=== PATIENT | female | born 1970 | race Hispanic/Latino ===

== ENCOUNTER 2021-09-10 14:37 | Emergency (ER) | payer SELFPAY ==
[~2021-09-10] VITALS: Ht 154.9 cm; Wt 113.4 kg
[2021-09-10] MEDS ORDERED: 0.9%NACL 1000ML 1,000 ML IV ONE (15:00)
[2021-09-10] MEDS ORDERED: KETOROLAC 30MG VIAL (30MG/ML) IV ONE (15:00)
[2021-09-10] MEDS ORDERED: ONDANSETRON 4MG INJ IVP ONE (15:00)
[2021-09-10 15:04] LABS: APPEARANCE,URINE Clear (CLEAR); BILIRUBIN,URINE Negative (NEGATIVE); COLOR,URINE Yellow (YELLOW); GLUCOSE, URINE (UA) Negative (NEGATIVE); KETONES,URINE Negative (NEGATIVE); LEUKOCYTE ESTERASE ,URINE Negative (NEGATIVE); NITRATE,URINE Negative (NEGATIVE); OCCULT BLOOD,URINE Trace (NEGATIVE); PH,URINE 5.5 (5.0-8.0); PROTEIN,URINE Negative (NEGATIVE); UROBILINOGEN,URINE 0.2 mg/dL (0.2-1.0)
[2021-09-10 15:05] VITALS: BP 151/83
[2021-09-10 15:14] LABS: BACTERIA,URINE Rare /HPF (None Seen); RBC,URINE 0-1 /HPF (0-1); SQUAMOUS EPITHELIAL CELL,UR Few /HPF (0-2); WBC,URINE 0-1 /HPF (0-1)
[2021-09-10 15:30] LABS: BASOPHILS % (AUTO) 0.7 % (0.0-5.0); EOSINOPHILS % (AUTO) 2.3 % (0.0-8.0); HEMATOCRIT 40.3 % (36-48); LYMPHOCYTES % (AUTO) 14.7 % (21.0-51.0); MEAN CORPUSCULAR HEMOGLOBIN 23.7 pg (27.0-33.0); MEAN CORPUSCULAR VOLUME 76.5 fL (79-99); MONOCYTES % (AUTO) 7.1 % (3.0-13.0); NEUTROPHILS % (AUTO) 74.8 % (40.0-77.0); PLATELET COUNT (AUTO) 405 K/uL (130-400); RED BLOOD CELL COUNT(AUTO) 5.27 MIL/uL (4.00-5.50); RED CELL DISTRIBUTION WIDTH 17.7 % (11.0-15.5); WHITE BLOOD COUNT (AUTO) 9.8 K/uL (4.8-10.8)
[2021-09-10 16:13] LABS: CREATININE 0.7 mg/dL (0.5-1.5); POTASSIUM 3.9 mmol/L (3.5-5.1)
[2021-09-10 16:18] LABS: ALBUMIN 3.4 g/dL (3.5-5.0); BILIRUBIN,TOTAL 0.2 mg/dL (0.2-1.0); CRP QUANTITATIVE 4.8 mg/L (0.00-9.0); TOTAL PROTEIN, SERUM 7.4 g/dL (6.0-8.3)
[2021-09-10] MEDS ORDERED: CYCL10TA16 PO (17:05)
[2021-09-10] MEDS ORDERED: ACET-2247 PO (17:05)
== END 2021-09-10 17:19 | disposition home or self-care (01) ==
LOC: EDH 14:37
DX: S29.012A Strain of muscle and tendon of back wall of thorax, initial encounter (principal); K57.30 Diverticulosis of large intestine without perforation or abscess without bleeding; R16.0 Hepatomegaly, not elsewhere classified; E66.9 Obesity, unspecified; F41.9 Anxiety disorder, unspecified; I10 Essential (primary) hypertension; Z68.42 Body mass index [BMI] 45.0-49.9, adult; X58.XXXA Exposure to other specified factors, initial encounter; Y93.89 Activity, other specified; Y92.89 Other specified places as the place of occurrence of the external cause; Y99.8 Other external cause status
CPT/HCPCS: 36415; 74176; 80053; 81001; 85025; 86140; 96361; 96374; 96375; 99284; J1885; J2405; J7030

== ENCOUNTER 2022-09-29 16:32 | Emergency (ER) | payer OTHER ==
[~2022-09-29] VITALS: Ht 152.4 cm; Wt 113.4 kg
[~2022-09-29 16:32] MED LIST: ACET-2247 PO; CYCL10TA16 PO
[2022-09-29] MEDS ORDERED: LACTATED RINGERS 1000ML 1,000 ML IV ONE (17:00)
[2022-09-29] MEDS ORDERED: KETOROLAC 30MG VIAL (30MG/ML) IVP ONE (17:00)
[2022-09-29 17:06] LABS: BASOPHILS % (AUTO) 0.6 % (0.0-5.0); EOSINOPHILS % (AUTO) 3.5 % (0.0-8.0); HEMATOCRIT 40.5 % (36-48); LYMPHOCYTES % (AUTO) 28.3 % (21.0-51.0); MEAN CORPUSCULAR HEMOGLOBIN 22.7 pg (27.0-33.0); MEAN CORPUSCULAR HGB CONC 30.4 g/dL (32.0-36.0); MEAN CORPUSCULAR VOLUME 74.7 fL (79-99); MONOCYTES % (AUTO) 6.3 % (3.0-13.0); NEUTROPHILS % (AUTO) 61.1 % (40.0-77.0); PLATELET COUNT (AUTO) 396 K/uL (130-400); RED BLOOD CELL COUNT(AUTO) 5.42 MIL/uL (4.00-5.50); RED CELL DISTRIBUTION WIDTH 17.1 % (11.0-15.5); WHITE BLOOD COUNT (AUTO) 8.1 K/uL (4.8-10.8)
[2022-09-29 17:07] LABS: APPEARANCE,URINE CLEAR (CLEAR); BILIRUBIN,URINE NEGATIVE (NEGATIVE); COLOR,URINE COLORLESS (YELLOW); GLUCOSE, URINE (UA) NEGATIVE (NEGATIVE); KETONES,URINE NEGATIVE (NEGATIVE); LEUKOCYTE ESTERASE ,URINE 75 Leu/uL (NEGATIVE); NITRATE,URINE NEGATIVE (NEGATIVE); OCCULT BLOOD,URINE NEGATIVE (NEGATIVE); PH,URINE 5.5 (5.0-8.0); PROTEIN,URINE NEGATIVE (NEGATIVE); UROBILINOGEN,URINE 0.2 mg/dL (0.2-1.0)
[2022-09-29 17:17] LABS: CREATININE 0.8 mg/dL (0.5-1.5); POTASSIUM 3.8 mmol/L (3.5-5.1)
[2022-09-29 17:22] LABS: ALBUMIN 3.7 g/dL (3.5-5.0)
[2022-09-29 17:52] LABS: MUCUS,URINE RARE LPF (None Seen); RBC,URINE 0-1 /HPF (0-1); SQUAMOUS EPITHELIAL CELL,UR RARE /HPF (0-2)
[2022-09-29] MEDS ORDERED: IOHEXOL 350 MG/ML 100ML INFUS..BTL IV ONE (18:10)
[2022-09-29] MEDS ORDERED: IBUP-2070 PO (20:10)
[2022-09-29 20:20] VITALS: BP 107/71
== END 2022-09-29 20:28 | disposition home or self-care (01) ==
LOC: EDH 16:32
DX: R10.11 Right upper quadrant pain (principal); R93.2 Abnormal findings on diagnostic imaging of liver and biliary tract; F41.9 Anxiety disorder, unspecified; I10 Essential (primary) hypertension; Z90.49 Acquired absence of other specified parts of digestive tract
CPT/HCPCS: 99285; 74177; 76705; 82150; 80053; 83690; 85025; 87088; 81001; 36415; Q9967

== ENCOUNTER 2022-12-22 19:45 | Emergency (ER) | payer OTHER ==
[~2022-12-22] VITALS: Ht 152.4 cm; Wt 119.3 kg
[~2022-12-22 19:45] MED LIST changes: +IBUP-2070 PO
[2022-12-22] MEDS ORDERED: SOLU-MEDROL 125MG VIAL IM ONE (21:30)
[2022-12-22] MEDS ORDERED: PRED20TA3 PO (23:06)
[2022-12-22 23:15] VITALS: BP 140/78
== END 2022-12-22 23:19 | disposition home or self-care (01) ==
LOC: EDH 19:45
DX: R22.0 Localized swelling, mass and lump, head (principal); K08.89 Other specified disorders of teeth and supporting structures; I10 Essential (primary) hypertension; F41.9 Anxiety disorder, unspecified; E66.01 Morbid (severe) obesity due to excess calories; Z68.43 Body mass index [BMI] 50.0-59.9, adult; Z79.899 Other long term (current) drug therapy; Z98.890 Other specified postprocedural states; Z90.49 Acquired absence of other specified parts of digestive tract
CPT/HCPCS: 99283; 96372; J2930

== ENCOUNTER 2023-06-15 21:11 | Emergency (ER) | payer OTHER ==
[~2023-06-15] VITALS: Ht 152.4 cm; Wt 122.5 kg
[~2023-06-15 21:11] MED LIST changes: +PRED20TA3 PO
[2023-06-15 21:51] LABS: BASOPHILS # (AUTO) 0.04 K/uL (0.00-0.20); BASOPHILS % (AUTO) 0.5 % (0.0-5.0); EOSINOPHILS # (AUTO) 0.24 K/uL (0.00-0.70); EOSINOPHILS % (AUTO) 3.1 % (0.0-8.0); HEMATOCRIT 43.4 % (36-48); IMMATURE GRANULOCYTE ABSOLUTE 0.03 K/uL (0-1); LYMPHOCYTES % (AUTO) 25.7 % (21.0-51.0); MEAN CORPUSCULAR HEMOGLOBIN 26.2 pg (27.0-33.0); MEAN CORPUSCULAR HGB CONC 32.5 g/dL (32.0-36.0); MEAN CORPUSCULAR VOLUME 80.5 fL (79-99); MONOCYTES # (AUTO) 0.5 K/uL (0.1-1.0); MONOCYTES % (AUTO) 6.8 % (3.0-13.0); NEUTROPHILS # (AUTO) 4.9 K/uL (1.8-7.7); NEUTROPHILS % (AUTO) 63.5 % (40.0-77.0); PLATELET COUNT (AUTO) 364 K/uL (130-400); RED BLOOD CELL COUNT(AUTO) 5.39 MIL/uL (4.00-5.50); RED CELL DISTRIBUTION WIDTH 15.6 % (11.0-15.5); WHITE BLOOD COUNT (AUTO) 7.6 K/uL (4.8-10.8)
[2023-06-15] MEDS ORDERED: 0.9%NACL 1000ML 1,000 ML IV ONE (22:00)
[2023-06-15] MEDS ORDERED: ONDANSETRON 4MG INJ IVP ONE (22:00)
[2023-06-15] MEDS ORDERED: MORPHINE 4 MG SYG IVP ONE (22:00)
[2023-06-15 22:04] LABS: APPEARANCE,URINE CLEAR (CLEAR); BILIRUBIN,URINE NEGATIVE (NEGATIVE); COLOR,URINE LIGHT-YELLOW (YELLOW); GLUCOSE, URINE (UA) NEGATIVE (NEGATIVE); KETONES,URINE NEGATIVE (NEGATIVE); LEUKOCYTE ESTERASE ,URINE 500 Leu/uL (NEGATIVE); NITRATE,URINE NEGATIVE (NEGATIVE); PH,URINE 5.5 (5.0-8.0); PROTEIN,URINE NEGATIVE (NEGATIVE); UROBILINOGEN,URINE 0.2 mg/dL (0.2-1.0)
[2023-06-15 22:05] LABS: ADD UA MICROSCOPIC YES
[2023-06-15 22:06] LABS: POTASSIUM 3.5 mmol/L (3.5-5.1)
[2023-06-15 22:12] LABS: ALBUMIN 3.4 g/dL (3.5-5.0); BILIRUBIN,TOTAL 0.2 mg/dL (0.2-1.0); TOTAL PROTEIN, SERUM 7.7 g/dL (6.0-8.3)
[2023-06-15 22:13] LABS: SQUAMOUS EPITHELIAL CELL,UR FEW /HPF (0-2)
[2023-06-15] MEDS ORDERED: FAMO20TA8 PO (22:28)
[2023-06-15] MEDS ORDERED: NITR100C4 PO (22:28)
[2023-06-15] MEDS ORDERED: CEFTRIAXONE 1G VIAL IVPB ONE (22:30)
[2023-06-15 22:42] VITALS: BP 132/65; PULSE 78; RESP 14; O2SAT 98
== END 2023-06-15 22:54 | disposition home or self-care (01) ==
LOC: EDH 21:11
DX: N39.0 Urinary tract infection, site not specified (principal); K29.70 Gastritis, unspecified, without bleeding; K57.90 Diverticulosis of intestine, part unspecified, without perforation or abscess without bleeding; I10 Essential (primary) hypertension; F41.9 Anxiety disorder, unspecified; E66.01 Morbid (severe) obesity due to excess calories; Z68.43 Body mass index [BMI] 50.0-59.9, adult; Z79.899 Other long term (current) drug therapy; Z98.890 Other specified postprocedural states
CPT/HCPCS: 99285; 74176; 96374; 96361; 96375; 80053; 83690; 85025; 87088; 81001; 36415; 93005; J7030; J0696; J2405; J2270

== ENCOUNTER 2023-06-27 10:18 | Emergency (ER) | payer OTHER ==
[~2023-06-27] VITALS: Ht 152.4 cm; Wt 122.9 kg
[~2023-06-27 10:18] MED LIST changes: +FAMO20TA8 PO; +NITR100C4 PO
[2023-06-27 11:07] VITALS: BP 144/85; PULSE 85; RESP 16; O2SAT 99
== END 2023-06-27 11:19 | disposition home or self-care (01) ==
LOC: EDH 10:18
DX: T16.1XXA Foreign body in right ear, initial encounter (principal); I10 Essential (primary) hypertension; F41.9 Anxiety disorder, unspecified; E66.01 Morbid (severe) obesity due to excess calories; Z68.43 Body mass index [BMI] 50.0-59.9, adult; Z90.49 Acquired absence of other specified parts of digestive tract; Z79.899 Other long term (current) drug therapy; Z98.890 Other specified postprocedural states

== ENCOUNTER 2023-10-29 14:50 | Emergency (ER) | payer OTHER ==
[~2023-10-29] VITALS: Ht 152.4 cm; Wt 113.4 kg
[2023-10-29 15:48] LABS: BASOPHILS # (AUTO) 0.05 K/uL (0.00-0.20); BASOPHILS % (AUTO) 0.7 % (0.0-5.0); EOSINOPHILS # (AUTO) 0.13 K/uL (0.00-0.70); EOSINOPHILS % (AUTO) 1.7 % (0.0-8.0); HEMATOCRIT 44.4 % (36-48); IMMATURE GRANULOCYTE ABSOLUTE 0.04 K/uL (0-1); LYMPHOCYTES # (AUTO) 1.6 K/uL (1.0-4.8); LYMPHOCYTES % (AUTO) 21.3 % (21.0-51.0); MEAN CORPUSCULAR HEMOGLOBIN 27.6 pg (27.0-33.0); MEAN CORPUSCULAR HGB CONC 33.3 g/dL (32.0-36.0); MEAN CORPUSCULAR VOLUME 82.7 fL (79-99); MONOCYTES # (AUTO) 0.6 K/uL (0.1-1.0); MONOCYTES % (AUTO) 7.2 % (3.0-13.0); NEUTROPHILS # (AUTO) 5.3 K/uL (1.8-7.7); NEUTROPHILS % (AUTO) 68.6 % (40.0-77.0); PLATELET COUNT (AUTO) 366 K/uL (130-400); RED BLOOD CELL COUNT(AUTO) 5.37 MIL/uL (4.00-5.50); RED CELL DISTRIBUTION WIDTH 14.6 % (11.0-15.5); WHITE BLOOD COUNT (AUTO) 7.7 K/uL (4.8-10.8)
[2023-10-29 16:17] LABS: CREATININE 0.8 mg/dL (0.5-1.5); POTASSIUM 4.2 mmol/L (3.5-5.1)
[2023-10-29 16:21] LABS: ALBUMIN 3.6 g/dL (3.5-5.0); BILIRUBIN,TOTAL 0.4 mg/dL (0.2-1.0); TOTAL PROTEIN, SERUM 8.2 g/dL (6.0-8.3)
[2023-10-29 18:19] LABS: APPEARANCE,URINE CLEAR (CLEAR); BILIRUBIN,URINE NEGATIVE (NEGATIVE); COLOR,URINE COLORLESS (YELLOW); GLUCOSE, URINE (UA) NEGATIVE (NEGATIVE); KETONES,URINE 10 mg/dL (NEGATIVE); LEUKOCYTE ESTERASE ,URINE 250 Leu/uL (NEGATIVE); NITRATE,URINE NEGATIVE (NEGATIVE); OCCULT BLOOD,URINE SMALL (NEGATIVE); PROTEIN,URINE NEGATIVE (NEGATIVE); UROBILINOGEN,URINE 0.2 mg/dL (0.2-1.0)
[2023-10-29 18:20] LABS: ADD UA MICROSCOPIC YES
[2023-10-29 18:21] LABS: HCG,QUALITATIVE URINE NEGATIVE (NEGATIVE)
[2023-10-29 18:28] LABS: BACTERIA,URINE RARE /HPF (None Seen); MUCUS,URINE RARE LPF (None Seen); SQUAMOUS EPITHELIAL CELL,UR FEW /HPF (0-2); WBC,URINE 26-50 /HPF (0-1)
[2023-10-29] MEDS ORDERED: CEPH500B PO (21:07)
[2023-10-29 21:12] VITALS: BP 138/86; PULSE 90; RESP 16; O2SAT 99
== END 2023-10-29 21:18 | disposition home or self-care (01) ==
LOC: EDH 14:50
DX: N39.0 Urinary tract infection, site not specified (principal); K57.30 Diverticulosis of large intestine without perforation or abscess without bleeding; K42.9 Umbilical hernia without obstruction or gangrene; I10 Essential (primary) hypertension; F41.9 Anxiety disorder, unspecified; Z90.49 Acquired absence of other specified parts of digestive tract
CPT/HCPCS: 36415; 74176; 80053; 81001; 81025; 83690; 85025; 87088

== ENCOUNTER 2024-01-03 10:05 | Emergency (ER) | payer OTHER ==
[~2024-01-03] VITALS: Ht 152.4 cm; Wt 119.7 kg
[~2024-01-03 10:05] MED LIST changes: +CEPH500B PO
[2024-01-03] MEDS ORDERED: FLUT16H NASAL (11:56)
[2024-01-03] MEDS ORDERED: PRED20TA3 PO (11:56)
[2024-01-03] MEDS ORDERED: BROM118S48 PO (11:56)
[2024-01-03] MEDS ORDERED: IBUP-2070 PO (11:56)
[2024-01-03] MEDS: IBUPROFEN 600 MG TABLET PO ONE (12:12)
[2024-01-03] MEDS: PREDNISONE 20 MG TABLET PO ONE (12:13)
[2024-01-03 13:38] VITALS: BP 121/63; PULSE 88; RESP 17; O2SAT 99
== END 2024-01-03 13:39 | disposition home or self-care (01) ==
LOC: EDH 10:05
DX: J02.9 Acute pharyngitis, unspecified (principal); R05.9 Cough, unspecified; I10 Essential (primary) hypertension; F41.9 Anxiety disorder, unspecified; Z79.899 Other long term (current) drug therapy; Z90.49 Acquired absence of other specified parts of digestive tract; Z98.890 Other specified postprocedural states; Z20.822 Contact with and (suspected) exposure to COVID-19
CPT/HCPCS: 87880

== ENCOUNTER 2024-03-27 18:14 | Emergency (ER) | payer OTHER ==
[~2024-03-27] VITALS: Ht 152.4 cm; Wt 117.9 kg
[~2024-03-27 18:14] MED LIST changes: +BROM118S48 PO; +FLUT16H NASAL
[2024-03-27 18:20] VITALS: RESP 18
[2024-03-27 18:22] VITALS: BP 148/93; PULSE 85; O2SAT 97
[2024-03-27] MEDS: METHOCARBAMOL 500 MG TABLET PO STA (19:02)
[2024-03-27] MEDS: KETOROLAC 15MG/ML VIAL (15MG/ML) IV STA (19:03)
[2024-03-27] MEDS ORDERED: METH-662 PO (19:53)
== END 2024-03-27 20:12 | disposition home or self-care (01) ==
LOC: EDH 18:14
DX: S16.1XXA Strain of muscle, fascia and tendon at neck level, initial encounter (principal); M54.9 Dorsalgia, unspecified; I10 Essential (primary) hypertension; K21.9 Gastro-esophageal reflux disease without esophagitis; J45.909 Unspecified asthma, uncomplicated; E66.01 Morbid (severe) obesity due to excess calories; Z68.43 Body mass index [BMI] 50.0-59.9, adult; Z79.899 Other long term (current) drug therapy; Z90.49 Acquired absence of other specified parts of digestive tract; Z98.890 Other specified postprocedural states; Z88.8 Allergy status to other drugs, medicaments and biological substances; X58.XXXA Exposure to other specified factors, initial encounter; Y93.89 Activity, other specified; Y92.89 Other specified places as the place of occurrence of the external cause; Y99.8 Other external cause status
CPT/HCPCS: 99283; 96374; J1885

== ENCOUNTER 2024-04-21 12:02 | Emergency (ER) | payer OTHER ==
[~2024-04-21] VITALS: Ht 152.4 cm; Wt 122.5 kg
[~2024-04-21 12:02] MED LIST changes: +KETO10TA2 PO; +METH-662 PO
[2024-04-21 12:45] LABS: BASOPHILS # (AUTO) 0.04 K/uL (0.00-0.20); BASOPHILS % (AUTO) 0.7 % (0.0-5.0); EOSINOPHILS # (AUTO) 0.12 K/uL (0.00-0.70); HEMATOCRIT 42.7 % (36-48); IMMATURE GRANULOCYTE ABSOLUTE 0.02 K/uL (0-1); LYMPHOCYTES # (AUTO) 1.3 K/uL (1.0-4.8); LYMPHOCYTES % (AUTO) 20.6 % (21.0-51.0); MEAN CORPUSCULAR HEMOGLOBIN 28.7 pg (27.0-33.0); MEAN CORPUSCULAR HGB CONC 33.7 g/dL (32.0-36.0); MEAN CORPUSCULAR VOLUME 85.1 fL (79-99); MONOCYTES # (AUTO) 0.3 K/uL (0.1-1.0); MONOCYTES % (AUTO) 5.4 % (3.0-13.0); NEUTROPHILS # (AUTO) 4.3 K/uL (1.8-7.7); PLATELET COUNT (AUTO) 252 K/uL (130-400); RED BLOOD CELL COUNT(AUTO) 5.02 MIL/uL (4.00-5.50); RED CELL DISTRIBUTION WIDTH 13.3 % (11.0-15.5); WHITE BLOOD COUNT (AUTO) 6.1 K/uL (4.8-10.8)
[2024-04-21 12:52] LABS: CREATININE 0.8 mg/dL (0.5-1.0); POTASSIUM 3.9 mmol/L (3.5-5.1)
[2024-04-21] MEDS: ORPHENADRINE CITRATE 30 MG/ML ML IM ONE (13:21)
[2024-04-21] MEDS: KETOROLAC 30MG VIAL (30MG/ML) IM ONE (13:21)
[2024-04-21] MEDS: TRIAMCINOLONE ACETONIDE 40 MG/ML 1ML VIAL IM ONE (13:21)
[2024-04-21 13:34] VITALS: BP 146/86
[2024-04-21 13:40] LABS: APPEARANCE,URINE CLEAR (CLEAR); BILIRUBIN,URINE NEGATIVE (NEGATIVE); COLOR,URINE LIGHT-YELLOW (YELLOW); GLUCOSE, URINE (UA) NEGATIVE (NEGATIVE); KETONES,URINE NEGATIVE (NEGATIVE); LEUKOCYTE ESTERASE ,URINE 25 Leu/uL (NEGATIVE); NITRATE,URINE NEGATIVE (NEGATIVE); PH,URINE 5.5 (5.0-8.0); PROTEIN,URINE NEGATIVE (NEGATIVE); UROBILINOGEN,URINE 0.2 mg/dL (0.2-1.0)
[2024-04-21 13:42] LABS: ADD UA MICROSCOPIC YES
[2024-04-21 13:43] LABS: SQUAMOUS EPITHELIAL CELL,UR FEW /HPF (0-2)
[2024-04-21] MEDS ORDERED: CYCL-309 PO (13:56)
[2024-04-21 14:17] VITALS: PULSE 68; RESP 16; O2SAT 99
== END 2024-04-21 14:25 | disposition home or self-care (01) ==
LOC: EDH 12:02
DX: S29.012A Strain of muscle and tendon of back wall of thorax, initial encounter (principal); I10 Essential (primary) hypertension; K21.9 Gastro-esophageal reflux disease without esophagitis; F41.9 Anxiety disorder, unspecified; Z90.49 Acquired absence of other specified parts of digestive tract; Z79.899 Other long term (current) drug therapy; X58.XXXA Exposure to other specified factors, initial encounter; Y93.89 Activity, other specified; Y92.89 Other specified places as the place of occurrence of the external cause; Y99.8 Other external cause status
CPT/HCPCS: 99284; 71045; 80048; 85025; 81001; 36415; 96372 ×2; J3301; J1885; J2360

== ENCOUNTER 2024-07-05 04:45 | Emergency (ER) | payer BC, MEDICAID ==
[~2024-07-05] VITALS: Ht 152.4 cm; Wt 122.5 kg
[~2024-07-05 04:45] MED LIST changes: +CYCL-309 PO
[2024-07-05] MEDS: PANTOPRAZOLE 40 MG/VIAL IVP ONE (05:24)
[2024-07-05] MEDS: LACTATED RINGERS 1000ML 1,000 ML IV ONE (05:25)
[2024-07-05 05:27] LABS: BASOPHILS # (AUTO) 0.02 K/uL (0.00-0.20); BASOPHILS % (AUTO) 0.5 % (0.0-5.0); EOSINOPHILS # (AUTO) 0.03 K/uL (0.00-0.70); EOSINOPHILS % (AUTO) 0.7 % (0.0-8.0); HEMATOCRIT 43.7 % (36-48); LYMPHOCYTES # (AUTO) 0.5 K/uL (1.0-4.8); LYMPHOCYTES % (AUTO) 11.3 % (21.0-51.0); MEAN CORPUSCULAR HEMOGLOBIN 29.6 pg (27.0-33.0); MEAN CORPUSCULAR HGB CONC 34.3 g/dL (32.0-36.0); MEAN CORPUSCULAR VOLUME 86.4 fL (79-99); MONOCYTES % (AUTO) 0.7 % (3.0-13.0); NEUTROPHILS # (AUTO) 3.5 K/uL (1.8-7.7); NEUTROPHILS % (AUTO) 82.1 % (40.0-77.0); PLATELET COUNT (AUTO) 274 K/uL (130-400); RED BLOOD CELL COUNT(AUTO) 5.06 MIL/uL (4.00-5.50); WHITE BLOOD COUNT (AUTO) 4.3 K/uL (4.8-10.8)
[2024-07-05 05:28] VITALS: BP 125/67; PULSE 97; RESP 16; O2SAT 98
[2024-07-05 05:45] LABS: CREATININE 0.9 mg/dL (0.5-1.0); POTASSIUM 3.8 mmol/L (3.5-5.1)
[2024-07-05] MEDS ORDERED: PANT40TA55 PO (06:17)
[2024-07-06] MEDS ORDERED: ONDA-243 PO (19:06)
[2024-07-06] MEDS ORDERED: ACET-2079 PO (19:06)
== END 2024-07-05 06:28 | disposition home or self-care (01) ==
LOC: EDH 04:45
DX: K29.70 Gastritis, unspecified, without bleeding (principal); E66.01 Morbid (severe) obesity due to excess calories; I10 Essential (primary) hypertension; K21.9 Gastro-esophageal reflux disease without esophagitis; Z79.899 Other long term (current) drug therapy; Z85.3 Personal history of malignant neoplasm of breast; Z90.49 Acquired absence of other specified parts of digestive tract; Z95.0 Presence of cardiac pacemaker; Z98.890 Other specified postprocedural states
CPT/HCPCS: 99284; 96374; 96361; 82550; 84484; 80048; 83690; 85025; 36415; 93005; J7120; J2470

== ENCOUNTER 2024-07-06 15:41 | Emergency (ER) | payer BC, MEDICAID ==
[~2024-07-06] VITALS: Ht 152.4 cm; Wt 115.2 kg
[~2024-07-06 15:41] MED LIST changes: +PANT40TA55 PO
[2024-07-06 16:43] LABS: HEMATOCRIT 42.5 % (36-48); MEAN CORPUSCULAR HGB CONC 34.1 g/dL (32.0-36.0); PLATELET COUNT (AUTO) 326 K/uL (130-400); RED CELL DISTRIBUTION WIDTH 12.9 % (11.0-15.5); WHITE BLOOD COUNT (AUTO) 2.1 K/uL (4.8-10.8)
[2024-07-06] MEDS: KETOROLAC 30MG VIAL (30MG/ML) IVP ONE (16:50)
[2024-07-06] MEDS: 0.9%NACL 1000ML 1,000 ML IV ONE (16:50)
[2024-07-06] MEDS: ONDANSETRON 4MG INJ IVP ONE (16:50)
[2024-07-06] MEDS: MORPHINE 4 MG SYG IVP ONE (16:50)
[2024-07-06 17:17] LABS: CREATININE 0.7 mg/dL (0.5-1.0); POTASSIUM 3.9 mmol/L (3.5-5.1)
[2024-07-06 17:22] LABS: ALBUMIN 3.4 g/dL (3.5-5.0); BILIRUBIN,TOTAL 0.7 mg/dL (0.2-1.0); TOTAL PROTEIN, SERUM 7.6 g/dL (6.0-8.3)
[2024-07-06 18:09] LABS: BAND NEUTROPHILS % (MANUAL) 4 % (0-2); LYMPHOCYTES % (MANUAL) 43 % (22-44); MAN.DIFF COMMENT-IMPRESSION MANUAL DIFFERENTIAL; MONOCYTES % (MANUAL) 5 % (2-9); PLATELET MORPHOLOGY COMMENT ADEQUATE; SEGMENTED NEUTROPHILS % 48 % (40-70); TOTAL CELLS COUNTED 100
[2024-07-06 18:42] LABS: APPEARANCE,URINE CLEAR (CLEAR); BILIRUBIN,URINE SMALL mg/dL (NEGATIVE); COLOR,URINE YELLOW (YELLOW); GLUCOSE, URINE (UA) NEGATIVE (NEGATIVE); KETONES,URINE 40 mg/dL (NEGATIVE); LEUKOCYTE ESTERASE ,URINE NEGATIVE Leu/uL (NEGATIVE); NITRATE,URINE NEGATIVE (NEGATIVE); OCCULT BLOOD,URINE MODERATE (NEGATIVE); PROTEIN,URINE NEGATIVE (NEGATIVE); UROBILINOGEN,URINE 0.2 mg/dL (0.2-1.0)
[2024-07-06 18:46] LABS: ADD UA MICROSCOPIC YES
[2024-07-06 18:50] LABS: BACTERIA,URINE Rare /HPF (None Seen); RBC,URINE None Seen /HPF (0-1); SQUAMOUS EPITHELIAL CELL,UR Rare /HPF (0-2); WBC,URINE 0-1 /HPF (0-1)
[2024-07-06] MEDS ORDERED: ONDA-243 PO (19:06)
[2024-07-06] MEDS ORDERED: ACET-2079 PO (19:06)
[2024-07-06 20:16] VITALS: BP 134/72; PULSE 85; RESP 14; O2SAT 98
== END 2024-07-06 20:18 | disposition home or self-care (01) ==
LOC: EDH 15:41
DX: R10.9 Unspecified abdominal pain (principal); E87.1 Hypo-osmolality and hyponatremia; E86.0 Dehydration; D09.9 Carcinoma in situ, unspecified; I10 Essential (primary) hypertension; E11.9 Type 2 diabetes mellitus without complications; E78.00 Pure hypercholesterolemia, unspecified; K21.9 Gastro-esophageal reflux disease without esophagitis; F41.9 Anxiety disorder, unspecified; Z79.899 Other long term (current) drug therapy; Z90.49 Acquired absence of other specified parts of digestive tract; Z98.890 Other specified postprocedural states
CPT/HCPCS: 99284; 96374; 96375; 96361; 80053; 83690; 85027; 81001; 36415; J7030; J2405; J2270; J1885

== ENCOUNTER 2024-09-04 23:57 | Emergency (ER) | payer BC, MEDICAID ==
[~2024-09-04] VITALS: Ht 152.4 cm; Wt 74.8 kg
[~2024-09-04 23:57] MED LIST changes: +ACET-2079 PO; +ONDA-243 PO
[2024-09-05] MEDS: ondanSETRON 4MG INJ IVP ONE (00:24)
[2024-09-05] MEDS: LACTATED RINGERS 1000ML 1,000 ML IV ONE (00:25)
[2024-09-05 00:30] LABS: POTASSIUM 3.4 mmol/L (3.5-5.1)
[2024-09-05] MEDS: morPHINE 4 MG SYG IVP ONE (00:30)
[2024-09-05 00:31] LABS: BASOPHILS # (AUTO) 0.02 K/uL (0.00-0.20); BASOPHILS % (AUTO) 0.3 % (0.0-5.0); EOSINOPHILS # (AUTO) 0.02 K/uL (0.00-0.70); EOSINOPHILS % (AUTO) 0.3 % (0.0-8.0); HEMATOCRIT 45.4 % (36-48); IMMATURE GRANULOCYTE ABSOLUTE 0.02 K/uL (0-1); LYMPHOCYTES # (AUTO) 1.5 K/uL (1.0-4.8); MEAN CORPUSCULAR HEMOGLOBIN 29.2 pg (27.0-33.0); MEAN CORPUSCULAR HGB CONC 34.1 g/dL (32.0-36.0); MEAN CORPUSCULAR VOLUME 85.7 fL (79-99); MONOCYTES # (AUTO) 0.1 K/uL (0.1-1.0); MONOCYTES % (AUTO) 0.9 % (3.0-13.0); NEUTROPHILS # (AUTO) 4.7 K/uL (1.8-7.7); NEUTROPHILS % (AUTO) 74.2 % (40.0-77.0); PLATELET COUNT (AUTO) 336 K/uL (130-400); RED CELL DISTRIBUTION WIDTH 13.9 % (11.0-15.5); WHITE BLOOD COUNT (AUTO) 6.3 K/uL (4.8-10.8)
[2024-09-05 00:36] LABS: ALBUMIN 3.6 g/dL (3.5-5.0); BILIRUBIN,TOTAL 0.5 mg/dL (0.2-1.0); TOTAL PROTEIN, SERUM 7.5 g/dL (6.0-8.3)
[2024-09-05 00:49] LABS: INFLUENZA TYPE A Negative For Type A (NEGATIVE); INFLUENZA TYPE B Negative For Type B (NEGATIVE)
[2024-09-05 00:51] LABS: COVID19 (SARS ANTIGEN RAPID) PRESUMPTIVE NEGATIVE (NEGATIVE)
[2024-09-05 01:25] LABS: APPEARANCE,URINE CLEAR (CLEAR); BILIRUBIN,URINE NEGATIVE (NEGATIVE); COLOR,URINE YELLOW (YELLOW); GLUCOSE, URINE (UA) NEGATIVE (NEGATIVE); KETONES,URINE NEGATIVE (NEGATIVE); LEUKOCYTE ESTERASE ,URINE NEGATIVE Leu/uL (NEGATIVE); NITRATE,URINE NEGATIVE (NEGATIVE); PROTEIN,URINE 70 mg/dL (NEGATIVE); UROBILINOGEN,URINE 0.2 mg/dL (0.2-1.0)
[2024-09-05 01:28] LABS: ADD UA MICROSCOPIC YES
[2024-09-05 01:29] LABS: BACTERIA,URINE FEW /HPF (None Seen); MUCUS,URINE RARE LPF (None Seen); SQUAMOUS EPITHELIAL CELL,UR RARE /HPF (0-2)
[2024-09-05] MEDS ORDERED: LISI1TAB53 PO (03:00)
[2024-09-05] MEDS ORDERED: CITA-108 PO (03:00)
[2024-09-05] MEDS ORDERED: OMEP40CA21 PO (03:00)
[2024-09-05] MEDS ORDERED: ONDA22I SL (03:05)
[2024-09-05 03:20] VITALS: BP 126/73; PULSE 92; RESP 18; TEMP 98.4; O2SAT 98
== END 2024-09-05 03:21 | disposition home or self-care (01) ==
LOC: EDH 23:57
DX: R10.84 Generalized abdominal pain (principal); R11.2 Nausea with vomiting, unspecified; E11.9 Type 2 diabetes mellitus without complications; E66.01 Morbid (severe) obesity due to excess calories; E78.00 Pure hypercholesterolemia, unspecified; I10 Essential (primary) hypertension; K21.9 Gastro-esophageal reflux disease without esophagitis; Z20.822 Contact with and (suspected) exposure to COVID-19; Z79.52 Long term (current) use of systemic steroids; Z79.899 Other long term (current) drug therapy; Z90.49 Acquired absence of other specified parts of digestive tract; Z98.890 Other specified postprocedural states
CPT/HCPCS: 99284; 87426; 84484; 80053; 83690; 85025; 87086 ×2; 87186; 87804 ×2; 81001; 36415; 74176; 96374; 96361; 71045; 93005; J2405; J2270

== ENCOUNTER 2024-09-25 09:43 | Emergency (ER) | payer BC, MEDICAID ==
[~2024-09-25] VITALS: Ht 152.4 cm; Wt 121.6 kg
[~2024-09-25 09:43] MED LIST changes: +CITA-108 PO; +LISI1TAB53 PO; +OMEP40CA21 PO; +ONDA22I SL
[2024-09-25 09:45] VITALS: TEMP 98.3
[2024-09-25] MEDS ORDERED: ketOROlac 30MG VIAL (30MG/ML) IM ONE (10:00)
[2024-09-25] MEDS ORDERED: dexaMETHasone SOD PHOSPHATE 4 MG/ML 1ML VIAL IM ONE (10:00)
--- NOTE | 2024-09-25 10:00 | EKG ---
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
--- NOTE | 2024-09-25 10:16 | ERN ---
General Chief Complaint: Nausea,Vomiting,Diarrhea Stated Complaint: NAUSEA, R/T CHEMO Time Seen by MD: 09:45 Source: patient History of Present Illness Initial Comments Patient is a 54-year-old female coming in to be evaluated for nauseousness. Patient states that she recently finished for dose of chemotherapy for breast cancer. She states she gets chemotherapies every three months. Allergies: Coded Allergies: No Allergy Information Available (Verified Allergy, Unknown, 09/10/21) No Known Drug Allergies (Unverified Allergy, Unknown, 06/15/23) Home Meds Active Scripts Ondansetron HCl (Zofran) 4 Mg/2 Ml Inj, 4 MG SL Q4PRN, #15 ML Prov:JOE MORGAN DO 09/05/24 Acetaminophen with Codeine (Acetaminophen-Cod #3 Tablet) 300 Mg-30 Mg Tablet, 1 TAB PO Q4H PRN for MODERATE PAIN, #15 TAB 0 Refills Prov:NY MYERS NP 07/06/24 Ondansetron (Ondansetron Odt) 4 Mg Tab.rapdis, 4 MG PO Q6HPRN PRN for nausea, #16 TAB 0 Refills Prov:NY MYERS NP 07/06/24 Pantoprazole Sodium (Protonix) 40 Mg Ectab, 40 MG PO DAILY for 30 Days, #30 TAB.EC Prov:FRANSICO TIDWELL MD 07/05/24 Ketorolac Tromethamine (Ketorolac Tromethamine) 10 Mg Tablet, 10 MG PO BID for 5 Days, #10 TAB Prov:CAIT HOLGUIN 04/21/24 Cyclobenzaprine HCl (Cyclobenzaprine HCl) 10 Mg Tablet, 10 MG PO DAILYDINNER for 7 Days, #7 TAB Prov:CAIT HOLGUIN 04/21/24 Cephalexin Monohydrate (Keflex) 500 Mg Cap, 500 MG PO BID for 7 Days, #28 CAP Prov:CAIT HOLGUIN 04/18/24 Ketorolac Tromethamine (Ketorolac Tromethamine) 10 Mg Tablet, 10 MG PO BID for 5 Days, #10 TAB Prov:CAIT HOLGUIN 04/18/24 Methocarbamol (Robaxin) 750 Mg Tab, 750 MG PO BID for 5 Days, #10 TAB Prov:CAIT HOLGUIN 04/18/24 Methocarbamol (Robaxin) 750 Mg Tab, 750 MG PO TIDP PRN for PAIN, #15 TAB Prov:MENDY CARRILLO 03/27/24 D-Methorphan Hb/P-Epd HCl/Bpm (Bromfed Dm Cough Syrup) 2 Mg-30 Mg-10 Mg/5 Ml Syrup, 5 ML PO Q6HPRN PRN for COUGH/COLD SYMPTOMS, #240 ML Prov:BENTON MENDOZA ELECTRONICS ENGINEERING MANAGER 01/03/24 Fluticasone Propionate (Flonase Nasal Thayer) 50 Mcg/Actuation Thayer, 1 SPRAY NASAL BID for 7 Days, #50 SPRAY Prov:BENTON MENDOZA ELECTRONICS ENGINEERING MANAGER 01/03/24 Prednisone (Prednisone) 20 Mg Tablet, 2 TAB PO DAILY for 5 Days, #10 TAB 0 Refills Prov:BENTON MENDOZA ELECTRONICS ENGINEERING MANAGER 01/03/24 Ibuprofen (Ibuprofen) 600 Mg Tablet, 600 MG PO Q6H PRN for PAIN, #30 TAB Prov:BENTON MENDOZA [facility] 01/03/24 Cephalexin Monohydrate (Keflex) 500 Mg Cap, 500 MG PO TID for 7 Days, #21 CAP Prov:JEREMY GUZMAN V ELECTRONICS ENGINEERING MANAGER 10/29/23 Famotidine (Famotidine) 20 Mg Tablet, 20 MG PO BID, #14 TAB Prov:JEREMY GUZMAN V ELECTRONICS ENGINEERING MANAGER 06/15/23 Nitrofurantoin Monohyd/M-Cryst (Macrobid 100 mg Capsule) 100 Mg Capsule, 100 MG PO BID for 5 Days, #10 CAP Prov:JEREMY GUZMAN V [facility] 06/15/23 Prednisone (Prednisone) 20 Mg Tablet, 20 MG PO ONCE A DAY for FACE SWELLING for 7 Days, #7 TAB Prov:PEDRO PABLO PRATT DNP 12/22/22 Ibuprofen (Ibuprofen) 600 Mg Tablet, 600 MG PO Q6H PRN for PAIN, #30 TAB Prov:RAFIQ MCCORMACK MD 09/29/22 Acetaminophen (Tylenol) 325 Mg Tablet, 650 MG PO Q4HPRN, #50 TAB Prov:FIGUEROA SAVAGE 09/10/21 Cyclobenzaprine HCl (Flexeril) 10 Mg Tab, 10 MG PO BID, #30 TAB Prov:FIGUEROA SAVAGE 09/10/21 Reported Medications Omeprazole (Omeprazole) 40 Mg Capsule.dr, 1 CAP PO DAILY for 30 Days, #30 CAP 0 Refills 09/05/24 Citalopram Hydrobromide (Citalopram HBr) 40 Mg Tablet, 1 TAB PO DAILY for 30 Days, #30 TAB 0 Refills 09/05/24 Lisinopril/Hydrochlorothiazide (Lisinopril-Hctz 20-25 mg Tab) 20 Mg-25 Mg Tablet, 1 TAB PO DAILY for 30 Days, #30 TAB 0 Refills 09/05/24 Past Medical History Past Medical History: Anxiety, Cancer, Diabetes-Type II, GERD, High Cholesterol, Hypertension Medical History Other: Morbid obese, BREAST CANCER Past Surgical History: Cholecystectomy, Other Surgical History Other: R FOOT SX Family History Family History: DM Social History Social History: Negative, Lives with family Female( History) History: Not Applicable ROS Dictation CONSTITUTIONAL: No chills, no fever, no weakness, no diaphoresis, no malaise. HEAD/FACE: No signs of trauma. EENT: No eye pain, no blurred vision, no tearing, no double vision, no ear pain, no ear discharge, no nose pain, no nasal congestion, no throat pain, no throat swelling, no mouth pain. RESPIRATORY: No cough, no orthopnea, no SOB, no stridor, no wheezing. CARDIOVASCULAR: No chest pain, no edema, no palpitations, no syncope. GASTROINTESTINAL/ABDOMINAL: No abdominal pain, no constipation, no diarrhea, no nausea, no vomiting. GENITOURINARY: No abnormal discharge, no dysuria, no frequent urination, no hematuria. No complaints of pain in the genitals. MUSCULOSKELETAL: No back pain, no gout, no joint pain, no joint swelling, no muscle pain, no muscle stiffness, no neck pain. INTEGUMENTARY: No change in color, no change in hair/nails, no dryness, no lesion, no lumps, no rash. NEUROLOGICAL/PSYCH: No anxiety, not depressed, no emotional problem, no headache, no numbness, no pre-existing deficit, no history of seizures, no tremors, no weakness. HEMATOLOGIC/LYMPHATIC: Not anemic, no history of blood clots, no apparent bleeding, no bruising, glands not swollen. All Systems Negative, Except as Noted. Physical Exam Physical Exam Dictation VITAL SIGNS: Reviewed. GENERAL APPEARANCE: Alert, oriented x3, no acute distress, obese. HEAD AND FACE: Non-traumatic. EYES: PERRL, pink conjunctivas, eyelid no trauma, anterior chamber clear. EARS: Pinnas intact and no signs of trauma or erythema. Ear canals clear and no discharge. TMs no erythema. NOSE: No discharge, no bleeding. OROPHARYNX: Mouth normal, teeth no caries, tongue pink. Pharynx clear, no erythema. Tonsils no exudates, no abscesses noted. Mucous membrane moist. NECK: Supple, non-tender, no thyromegaly, no masses, no JVD, no bruits. BREAST: Deferred. CHEST: No tenderness, no crepitus, no paradoxical movement, no retractions. LUNGS: Clear, well-ventilated, symmetric, no rales, no wheezing, no rhonchi, no stridor, good breath sounds bilaterally. HEART: Regular rate, regular rhythm, no murmur, no gallops. VASCULAR: No peripheral edema. ABDOMEN: Soft, positive bowel sounds, nondistended, no guarding, nontender, no rebound, no masses no hepatomegaly, no splenomegaly, no [place]'s sign, no hernias. RECTAL: Deferred. GENITAL: Deferred. NEUROLOGICAL: Normal speech, gross motor function intact, gross sensory function intact. MUSCULOSKELETAL: Neck nontender, full range of motion, back nontender, full range of motion. EXTREMITIES: Nontender, full range of motion. SKIN: Color pink, dry, no turgor, no rash, no lacerations, no abrasions, no contusions. LYMPHATICS: Deferred. Results Laboratory and Microbiology Lab and Micro Result Laboratory Tests Test 09/25/24 10:33 09/25/24 11:40 White Blood Count 3.1 K/uL (4.8-10.8) L Red Blood Count 4.87 MIL/uL (4.00-5.50) Hemoglobin 14.3 g/dL (12.0-16.0) Hematocrit 41.9 % (36-48) Mean Corpuscular Volume 86.0 fL (79-99) Mean Corpuscular Hemoglobin 29.4 pg (27.0-33.0) Mean Corpuscular Hemoglobin Concent 34.1 g/dL (32.0-36.0) Red Cell Distribution Width 14.6 % (11.0-15.5) Platelet Count 257 K/uL (130-400) Mean Platelet Volume 9.6 fL (7.5-10.5) Immature Granulocyte % (Auto) 0.3 % (0-1) Neutrophils (%) (Auto) 71.2 % (40.0-77.0) Lymphocytes (%) (Auto) 26.9 % (21.0-51.0) Monocytes (%) (Auto) 1.0 % (3.0-13.0) L Eosinophils (%) (Auto) 0.3 % (0.0-8.0) Basophils (%) (Auto) 0.3 % (0.0-5.0) Neutrophils # (Auto) 2.2 K/uL (1.8-7.7) Lymphocytes # (Auto) 0.8 K/uL (1.0-4.8) L Monocytes # (Auto) 0.0 K/uL (0.1-1.0) L Eosinophils # (Auto) 0.01 K/uL (0.00-0.70) Basophils # (Auto) 0.01 K/uL (0.00-0.20) Absolute Immature Granulocyte (auto 0.01 K/uL (0-1) Nucleated Red Blood Cells 0.0 % (0.0-0.19) Sodium Level 139 mmol/L (136-145) Potassium Level 3.7 mmol/L (3.5-5.1) Chloride Level 99 mmol/L (101-111) L Carbon Dioxide Level 32 mmol/L (21-32) Blood Urea Nitrogen 12 mg/dL (7-18) Creatinine 0.8 mg/dL (0.5-1.0) Glomerular Filtration Rate Calc 87 mL/min (>90) Random Glucose 116 mg/dL (70-105) H Total Calcium 9.3 mg/dL (8.5-10.1) Total Bilirubin 0.4 mg/dL (0.2-1.0) Aspartate Amino Transf (AST/SGOT) 20 U/L (10-37) Alanine Aminotransferase (ALT/SGPT) 27 U/L (12-78) Alkaline Phosphatase 111 U/L (50-136) Total Creatine Kinase 30 U/L (21-232) # Troponin I High Sensitivity < 4 ng/L (4-50) L Total Protein 7.0 g/dL (6.0-8.3) Albumin 3.7 g/dL (3.5-5.0) Lipase 31 U/L (16-77) Urine Color LIGHT-YELLOW (YELLOW) Urine Appearance CLEAR (CLEAR) Urine pH 6.5 (5.0-8.0) Urine Specific [place] 1.014 (1.001-1.031) Urine Protein NEGATIVE mg/dL (NEGATIVE) Urine Glucose (UA) NEGATIVE mg/dL (NEGATIVE) Urine Ketones NEGATIVE mg/dL (NEGATIVE) Urine Occult Blood NEGATIVE (NEGATIVE) Urine Nitrate NEGATIVE (NEGATIVE) Urine Bilirubin NEGATIVE mg/dL (NEGATIVE) Urine Urobilinogen 0.2 mg/dL (0.2-1.0) Urine Leukocyte Esterase NEGATIVE Yahaira/uL Labs Reviewed?: Yes EKG/XRAY/US/CT/MRI EKG Comment 09/25/2024 time 9:56 a.m. Ventricular rate 105 Sinus tachycardia [place] [address] wave elevation or depression MDM MDM: Differential diagnosis: Chemotherapy effects, gastritis, Patient is a 54-year-old female coming in to be evaluated for abdominal discomfort and nauseousness. Patient states he just finished her chemotherapy couple of days ago and started having these symptoms. Laboratory workup negative for acute findings. Mild dehydration IV fluids were given Protonix were given patient states he feels much better will be discharged in stable condition. Advised her appropriate follow up with PCP in 1-2 days . ED Course Orders Procedure Category Date Status Time Dexamethasone 4mg/Ml PHA 09/25/24 Complete 1ml Vial (Dexametha 10:00 Ketorolac PHA 09/25/24 Complete Tromethamine 30mg/Ml 10:00 Cbc With Differential LAB 09/25/24 Complete 09:46 Comprehensive LAB 09/25/24 Complete Metabolic Panel 09:46 Troponin I High LAB 09/25/24 Complete Sensitivity 09:46 Urinalysis Profile LAB 09/25/24 Complete 09:46 12 Lead Ekg Tracing- EKG 09/25/24 Complete Technical 09:46 Lactated Ringers PHA 09/25/24 Complete 1000ml (Lactated 10:00 Pantoprazole 40mg Inj PHA 09/25/24 Complete (Protonix 40mg Inj 10:00 Creatine Kinase, Total LAB 09/25/24 Complete 09:46 Lipase LAB 09/25/24 Complete 09:46 Current Medications Medications (Trade) Dose Ordered Sig/Giuseppe Route PRN Reason Start Time Stop Time Status Last Admin Dose Admin Dexamethasone Sodium Phosphate (dexaMETHasone 4MG/ML 1ML VIAL) 4 mg ONCE ONCE IM 09/25/24 10:00 09/25/24 09:50 DC Ketorolac Tromethamine (toRADol) 30 mg ONCE ONCE IM 09/25/24 10:00 09/25/24 09:50 DC Lactated Ringer's 1,000 ml @ 0 mls/hr ONCE ONCE IV 09/25/24 10:00 09/25/24 10:01 DC 09/25/24 10:20 Pantoprazole Sodium (PROTonix 40MG INJ) 40 mg ONCE ONCE IVP 09/25/24 10:00 09/25/24 10:01 DC 09/25/24 10:20 Vital Signs Date Time Temp Pulse Resp B/P (MAP) Pulse Ox O2 Delivery O2 Flow Rate FiO2 09/25/24 10:45 97 17 117/71 98 Room Air* 0 21 09/25/24 09:45 98.2 109 20 120/78 98 Room Air 0 DX & DISP Disposition: Discharge Departure Impression: Primary Impression: Chemotherapy adverse reaction Condition: Stable Scripts Pantoprazole Sodium (Protonix) 40 Mg Ectab 1 TAB PO DAILY for 30 Days, #30 TAB 0 Refills Prov: FRANSICO TIDWELL MD 09/25/24 Additional Instructions: FOLLOW-UP WITH PRIMARY CARE PROVIDER IN 1 TO 2 DAYS. TAKE MEDICATIONS DIRECTED HERE IN THE EMERGENCY ROOM. OKAY TO CONTINUE HOME MEDICATIONS UNLESS OTHERWISE DISCUSSED DURING YOUR VISIT IN THE EMERGENCY ROOM TODAY. RETURN TO YOUR NEAREST EMERGENCY ROOM IF SYMPTOMS WORSEN OR IF THERE IS NO IMPROVEMENT. CALL 911 IF YOU NEED IMMEDIATE ASSISTANCE. TAKE TYLENOL [id number] NEEDED AND IF NO CONTRAINDICATIONS ARE PRESENT. INCREASE ORAL HYDRATION. A WOUND CULTURE OR URINE CULTURE WAS ORDERED HERE IN THE EMERGENCY ROOM DEPARTMENT PLEASE FOLLOW-UP WITH PRIMARY CARE PROVIDER AND ADVISE THEM TO GET REPEAT PORTS FROM OUR FACILITY. IF YOU HAD ANY RAYMUNDO WRAP/SPLINTS THAT WERE APPLIED HERE, PLEASE DO NOT REMOVE THEM UNTIL YOU SEE YOUR PRIMARY CARE OR SPECIALTY. Referrals: Referrals: NONE (PCP) CAIT CRUZ MD Time of Disposition: 12:55 FRANSICO TIDWELL MD Sep 25, 2024 10:16
[2024-09-25] MEDS: PANTOPrazole 40 MG/VIAL IVP ONE (10:20)
[2024-09-25] MEDS: LACTATED RINGERS 1000ML 1,000 ML IV ONE (10:20)
[2024-09-25 10:42] LABS: BASOPHILS # (AUTO) 0.01 K/uL (0.00-0.20); BASOPHILS % (AUTO) 0.3 % (0.0-5.0); EOSINOPHILS # (AUTO) 0.01 K/uL (0.00-0.70); EOSINOPHILS % (AUTO) 0.3 % (0.0-8.0); HEMATOCRIT 41.9 % (36-48); IMMATURE GRANULOCYTE ABSOLUTE 0.01 K/uL (0-1); LYMPHOCYTES # (AUTO) 0.8 K/uL (1.0-4.8); LYMPHOCYTES % (AUTO) 26.9 % (21.0-51.0); MEAN CORPUSCULAR HEMOGLOBIN 29.4 pg (27.0-33.0); MEAN CORPUSCULAR HGB CONC 34.1 g/dL (32.0-36.0); NEUTROPHILS # (AUTO) 2.2 K/uL (1.8-7.7); NEUTROPHILS % (AUTO) 71.2 % (40.0-77.0); PLATELET COUNT (AUTO) 257 K/uL (130-400); RED BLOOD CELL COUNT(AUTO) 4.87 MIL/uL (4.00-5.50); RED CELL DISTRIBUTION WIDTH 14.6 % (11.0-15.5); WHITE BLOOD COUNT (AUTO) 3.1 K/uL (4.8-10.8)
[2024-09-25 11:07] LABS: ALBUMIN 3.7 g/dL (3.5-5.0); BILIRUBIN,TOTAL 0.4 mg/dL (0.2-1.0); CREATININE 0.8 mg/dL (0.5-1.0); POTASSIUM 3.7 mmol/L (3.5-5.1)
[2024-09-25 12:09] LABS: APPEARANCE,URINE CLEAR (CLEAR); BILIRUBIN,URINE NEGATIVE (NEGATIVE); COLOR,URINE LIGHT-YELLOW (YELLOW); GLUCOSE, URINE (UA) NEGATIVE (NEGATIVE); KETONES,URINE NEGATIVE (NEGATIVE); LEUKOCYTE ESTERASE ,URINE NEGATIVE Leu/uL (NEGATIVE); NITRATE,URINE NEGATIVE (NEGATIVE); OCCULT BLOOD,URINE NEGATIVE (NEGATIVE); PH,URINE 6.5 (5.0-8.0); PROTEIN,URINE NEGATIVE (NEGATIVE); UROBILINOGEN,URINE 0.2 mg/dL (0.2-1.0)
[2024-09-25 12:41] LABS: ADD UA MICROSCOPIC NO
[2024-09-25 12:45] VITALS: BP 120/72; PULSE 85; RESP 17; O2SAT 96
== END 2024-09-25 13:09 | disposition home or self-care (01) ==
LOC: EDH 09:43
DX: R11.2 Nausea with vomiting, unspecified (principal); R19.7 Diarrhea, unspecified; T45.1X5A Adverse effect of antineoplastic and immunosuppressive drugs, initial encounter; E11.9 Type 2 diabetes mellitus without complications; E66.01 Morbid (severe) obesity due to excess calories; E78.00 Pure hypercholesterolemia, unspecified; I10 Essential (primary) hypertension; K21.9 Gastro-esophageal reflux disease without esophagitis; Z79.52 Long term (current) use of systemic steroids; Z79.899 Other long term (current) drug therapy; Z85.3 Personal history of malignant neoplasm of breast; Z90.49 Acquired absence of other specified parts of digestive tract; Y92.89 Other specified places as the place of occurrence of the external cause
CPT/HCPCS: 99284; 96374; 96361; 82550; 84484; 80053; 83690; 85025; 81003; 36415; 93005; J7120; J2470

== ENCOUNTER 2025-01-17 13:33 | Emergency (ER) | payer BC, MEDICAID ==
[~2025-01-17] VITALS: Ht 152.4 cm; Wt 121.1 kg
--- NOTE | 2025-01-17 13:49 | EKG ---
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
--- NOTE | 2025-01-17 14:11 | ERN ---
ED Note History of Present Illness Stated Complaint: TIGHTNESS OF THROAT AND CHEST Chief Complaint: Anxiety/Panic Attack Time Seen by MD: 13:34 Dictation: PATIENT IS A 54-YEAR-OLD FEMALE HERE WITH COMPLAINTS OF HAVING TIGHTNESS IN HER THROAT AND CHEST, ONSET WAS OF COUPLE OF HOURS PRIOR TO ARRIVAL. SHE STATES SHE WAS TALKING ON THE TELEPHONE TO A FRIEND WHEN SHE HAD THE ONSET OF THE SYMPTOMS. SHE DENIED FEVER CHILLS NAUSEA VOMITING STATES THE THERE WAS NO CHEST PAIN. SHE STATES I HAS A HISTORY OF ANXIETY IT AND NOT TAKEN MY CITALOPRAM YET. SHE STATES SHE HAS HAD PANIC ATTACKS IN THE PAST, CURRENTLY BEING TREATED FOR BREAST CANCER. SHE DENIES ANY SUICIDAL OR HOMICIDAL IDEATION. Allergies: Coded Allergies: No Allergy Information Available (Verified Allergy, Unknown, 09/10/21) No Known Drug Allergies (Unverified Allergy, Unknown, 06/15/23) Home Meds Active Scripts Hydroxyzine Pamoate (Hydroxyzine Pamoate) 100 Mg Capsule, 100 MG PO TIDP PRN for ANXIETY/INSOMNIA, #30 CAP Prov:NY MYERS NP 01/17/25 Pantoprazole Sodium (Protonix) 40 Mg Ectab, 1 TAB PO DAILY for 30 Days, #30 TAB 0 Refills Prov:FRANSICO TIDWELL MD 09/25/24 Ondansetron HCl (Zofran) 4 Mg/2 Ml Inj, 4 MG SL Q4PRN, #15 ML Prov:JOE MORGAN DO 09/05/24 Acetaminophen with Codeine (Acetaminophen-Cod #3 Tablet) 300 Mg-30 Mg Tablet, 1 TAB PO Q4H PRN for MODERATE PAIN, #15 TAB 0 Refills Prov:NY MYERS NP 07/06/24 Ondansetron (Ondansetron Odt) 4 Mg Tab.rapdis, 4 MG PO Q6HPRN PRN for nausea, #16 TAB 0 Refills Prov:NY MYERS NP 07/06/24 Pantoprazole Sodium (Protonix) 40 Mg Ectab, 40 MG PO DAILY for 30 Days, #30 TAB.EC Prov:FRANSICO TIDWELL MD 07/05/24 Ketorolac Tromethamine (Ketorolac Tromethamine) 10 Mg Tablet, 10 MG PO BID for 5 Days, #10 TAB Prov:CAIT HOLGUIN 04/21/24 Cyclobenzaprine HCl (Cyclobenzaprine HCl) 10 Mg Tablet, 10 MG PO DAILYDINNER for 7 Days, #7 TAB Prov:CAIT HOLGUIN 04/21/24 Cephalexin Monohydrate (Keflex) 500 Mg Cap, 500 MG PO BID for 7 Days, #28 CAP Prov:CAIT HOLGUIN 04/18/24 Ketorolac Tromethamine (Ketorolac Tromethamine) 10 Mg Tablet, 10 MG PO BID for 5 Days, #10 TAB Prov:CAIT HOLGUIN 04/18/24 Methocarbamol (Robaxin) 750 Mg Tab, 750 MG PO BID for 5 Days, #10 TAB Prov:CAIT HOLGUIN 04/18/24 Methocarbamol (Robaxin) 750 Mg Tab, 750 MG PO TIDP PRN for PAIN, #15 TAB Prov:MENDY CARRILLO 03/27/24 D-Methorphan Hb/P-Epd HCl/Bpm (Bromfed Dm Cough Syrup) 2 Mg-30 Mg-10 Mg/5 Ml Syrup, 5 ML PO Q6HPRN PRN for COUGH/COLD SYMPTOMS, #240 ML Prov:BENTON MENDOZA BASEBALL SEWER HAND 01/03/24 Fluticasone Propionate (Flonase Nasal George) 50 Mcg/Actuation George, 1 SPRAY NASAL BID for 7 Days, #50 SPRAY Prov:BENTON MENDOZA [employer] SE[employer] HAND 01/03/24 Prednisone (Prednisone) 20 Mg Tablet, 2 TAB PO DAILY for 5 Days, #10 TAB 0 Refills Prov:BENTON MNEDOZA B[employer]BALL SE[employer] HAND 01/03/24 Ibuprofen (Ibuprofen) 600 Mg Tablet, 600 MG PO Q6H PRN for PAIN, #30 TAB Prov:BENTON MENDOZA [employer] SE[employer] HAND 01/03/24 Cephalexin Monohydrate (Keflex) 500 Mg Cap, 500 MG PO TID for 7 Days, #21 CAP Prov:JEREMY GUZMAN V [employer]BALL SE[employer] HAND 10/29/23 Famotidine (Famotidine) 20 Mg Tablet, 20 MG PO BID, #14 TAB Prov:JEREMY GUZMAN V [employer] HAND 06/15/23 Nitrofurantoin Monohyd/M-Cryst (Macrobid 100 mg Capsule) 100 Mg Capsule, 100 MG PO BID for 5 Days, #10 CAP Prov:JEREMY GUZMAN V [employer] HAND 06/15/23 Prednisone (Prednisone) 20 Mg Tablet, 20 MG PO ONCE A DAY for FACE SWELLING for 7 Days, #7 TAB Prov:PEDRO PABLO PRATT DNP 12/22/22 Ibuprofen (Ibuprofen) 600 Mg Tablet, 600 MG PO Q6H PRN for PAIN, #30 TAB Prov:RAFIQ MCCORMACK MD 09/29/22 Acetaminophen (Tylenol) 325 Mg Tablet, 650 MG PO Q4HPRN, #50 TAB Prov:FIGUEROA SAVAGE 09/10/21 Cyclobenzaprine HCl (Flexeril) 10 Mg Tab, 10 MG PO BID, #30 TAB Prov:FIGUEROA SAVAGE 09/10/21 Reported Medications Omeprazole (Omeprazole) 40 Mg Capsule.dr, 1 CAP PO DAILY for 30 Days, #30 CAP 0 Refills 09/05/24 Citalopram Hydrobromide (Citalopram HBr) 40 Mg Tablet, 1 TAB PO DAILY for 30 Days, #30 TAB 0 Refills 09/05/24 Lisinopril/Hydrochlorothiazide (Lisinopril-Hctz 20-25 mg Tab) 20 Mg-25 Mg Tablet, 1 TAB PO DAILY for 30 Days, #30 TAB 0 Refills 09/05/24 Past Medical History Past Medical History: Anxiety, Cancer, Diabetes-Type II, GERD, High Cholesterol, Hypertension Additional Past Medical Hx: Morbid obese, BREAST CANCER Surgical History: Cholecystectomy, Other Surgical History Other: R FOOT SX Family History: DM Social History: Negative, Lives with family History: Not Applicable RN Note Reviewed/Agreed w/PFSH: Yes Review of System Dictation CONSTITUTIONAL: NEGATIVE EXCEPT FOR HPI HEAD/FACE: NEGATIVE EXCEPT FOR HPI EENT: NEGATIVE EXCEPT FOR HPI THROAT TIGHTNESS RESPIRATORY: NEGATIVE EXCEPT FOR HPI GASTROINTESTINAL/ABDOMINAL: NEGATIVE EXCEPT FOR HPI GENITOURINARY: NEGATIVE EXCEPT FOR HPI MUSCULOSKELETAL: NEGATIVE EXCEPT FOR HPI INTEGUMENTARY: NEGATIVE EXCEPT FOR HPI NEUROLOGICAL/PSYCH: NEGATIVE EXCEPT FOR HPI ANXIETY HEMATOLOGIC/LYMPHATIC: NEGATIVE EXCEPT FOR HPI ALL SYSTEMS NEGATIVE, EXCEPT NOTED ABOVE. 13 POINT REVIEW OF SYSTEMS ASSESSED AND ALL NEGATIVE EXCEPT FOR ABOVE. Initial Vital Sign VS Vital Signs Date Time Temp Pulse Resp B/P (MAP) Pulse Ox O2 Delivery O2 Flow Rate FiO2 01/17/25 13:36 99.0 100 18 160/88 97 Room Air 0 01/17/25 18:10 21 Physical Exam Dictation VITAL SIGNS REVIEWED GENERAL APPEARANCE: ALERT, ORIENTED X 3, MILD ACUTE DISTRESS, WELL DEVELOPED, NOURISHED. OBESE HEAD AND FACE: NON-TRAUMATIC. EYES: PERRL, PINK CONJUNCTIVAS, EYELID NO TRAUMA, ANTERIOR CHAMBER WITH ARCUS SENILIS. EARS: PINNAS INTACT AND NO SIGNS OF TRAUMA OR ERYTHEMA EAR CANALS CLEAR AND NO DISCHARGE TM NO ERYTHEMA NOSE: NO DISCHARGE, NO BLEEDING. OROPHARYNX: MOUTH NORMAL, TONGUE PINK, PHARYNX CLEAR,NO ERYTHEMA, TONSILS NO EXUDATES, NO ABSCESSES NOTED, MUCOUS MEMBRANE MOIST NECK: SUPPLE, NON-TENDER, NO THYROMEGALY, NO MASSES, NO JVD, NO BRUITS BREAST:DEFERRED CHEST:NO TENDERNESS, NO CREPITUS, NO PARADOXICAL MOVEMENT, NO RETRACTIONS LUNGS:CLEAR, WELL-VENTILATED, SYMMETRIC, NO RALES, NO WHEEZING, NO RHONCHI, NO STRIDOR, GOOD BREATH SOUNDS BILATERALLY HEART: REGULAR RATE, REGULAR RHYTHM, NO MURMUR, NO GALLOPS VASCULAR: NO PERIPHERAL EDEMA, ABDOMEN: SOFT, POSITIVE BOWEL SOUNDS, NONDISTENDED, NO GUARDING, NONTENDER, NO REBOUND, NO MASSES NO HEPATOMEGALY, NO SPLENOMEGALY, NO WIN'S SIGN, NO HERNIAS. RECTAL: DEFERRED GENITAL: DEFERRED NEUROLOGICAL: NORMAL SPEECH, MOTOR FUNCTION INTACT, SENSORY FUNCTION INTACT DENIES SUICIDAL OR HOMICIDAL IDEATION, MILDLY TEARFUL WITH THE EXAM MUSCULOSKELETAL: NECK NONTENDER, FULL RANGE OF MOTION, BACK NONTENDER, FULL RANGE OF MOTION, EXTREMITIES: NONTENDER, FULL RANGE OF MOTION SKIN: COLOR PINK, DRY, NO TURGOR, NO RASH, NO LACERATIONS, NO ABRASIONS, NO CONTUSIONS. LYMPHATIC: DEFERRED Results (Laboratory/Radiology) Laboratory/Radiology Laboratory Tests Test 01/17/25 15:23 White Blood Count 8.3 K/uL (4.8-10.8) Red Blood Count 4.84 MIL/uL (4.00-5.50) Hemoglobin 14.3 g/dL (12.0-16.0) Hematocrit 43.3 % (36-48) Mean Corpuscular Volume 89.5 fL (79-99) Mean Corpuscular Hemoglobin 29.5 pg (27.0-33.0) Mean Corpuscular Hemoglobin Concent 33.0 g/dL (32.0-36.0) Red Cell Distribution Width 13.8 % (11.0-15.5) Platelet Count 274 K/uL (130-400) Mean Platelet Volume 9.3 fL (7.5-10.5) Immature Granulocyte % (Auto) 0.4 % (0-1) Neutrophils (%) (Auto) 75.6 % (40.0-77.0) Lymphocytes (%) (Auto) 15.4 % (21.0-51.0) L Monocytes (%) (Auto) 5.6 % (3.0-13.0) Eosinophils (%) (Auto) 2.5 % (0.0-8.0) Basophils (%) (Auto) 0.5 % (0.0-5.0) Neutrophils # (Auto) 6.2 K/uL (1.8-7.7) Lymphocytes # (Auto) 1.3 K/uL (1.0-4.8) Monocytes # (Auto) 0.5 K/uL (0.1-1.0) Eosinophils # (Auto) 0.21 K/uL (0.00-0.70) Basophils # (Auto) 0.04 K/uL (0.00-0.20) Absolute Immature Granulocyte (auto 0.03 K/uL (0-1) Nucleated Red Blood Cells 0.0 % (0.0-0.19) Sodium Level 137 mmol/L (136-145) Potassium Level 3.4 mmol/L (3.5-5.1) L Chloride Level 102 mmol/L (101-111) Carbon Dioxide Level 29 mmol/L (21-32) Blood Urea Nitrogen 14 mg/dL (7-18) Creatinine 0.7 mg/dL (0.5-1.0) Glomerular Filtration Rate Calc 102 mL/min (>90) Random Glucose 124 mg/dL (70-105) H Total Calcium 8.9 mg/dL (8.5-10.1) Troponin I High Sensitivity 4 ng/L (4-50) Exam Type: CHEST 1VW Clinical Information: CHEST TIGHTNESS Comparison: None Findings: Left Mediport in place. The lungs are clear of infiltrates. The heart is normal in size. The bony and soft tissue structures of the chest are unremarkable. Impression: Clear lungs. Labs Reviewed?: Yes EKG Comment: [facility] Test Date: 2025-01-17 Test Time: 13:40:41 Pat Name: JANUSZ SHAHID Department: EDH Room: Gender: Female Database Consultant: [id number] : 1970 Requested By: APRIL KRAUSE Order Number: [id number] Reading MD: Measurements Intervals [place] Rate: 91 P: 40 WI: 170 QRS: 32 QRSD: 68 T: 27 QT: 359 QTc: 441 Interpretive Statements Sinus rhythm Low voltage, precordial leads No previous ECG available for comparison Please click the below link to view image of tracing. ED Course ED Course Orders Procedure Category Date Status Time 12 Lead Ekg Tracing- EKG 01/17/25 Complete Technical 13:38 Chest 1vw RAD 01/17/25 Resulted 13:38 Cbc With Differential LAB 01/17/25 Complete 13:38 Basic Metabolic Panel LAB 01/17/25 Complete 13:38 Urinalysis Profile LAB 01/17/25 Logged 13:38 Potassium Bicarb/Cit PHA 01/17/25 In Process Ac 25meq (K-Lyte Ta 17:30 Troponin I High LAB 01/17/25 Complete Sensitivity 17:07 Current Medications Medications (Trade) Dose Ordered Sig/Giuseppe Route PRN Reason Start Time Stop Time Status Last Admin Dose Admin Potassium Bicarbonate (K-Lyte Tablet Eff 25 Meq Tablet.eff) 25 meq ONCE PO 01/17/25 17:30 01/17/25 22:30 01/17/25 18:14 Vital Signs Date Time Temp Pulse Resp B/P (MAP) Pulse Ox O2 Delivery O2 Flow Rate FiO2 01/17/25 18:10 99.0 92 18 148/74 97 Room Air* 0 21 01/17/25 13:36 99.0 100 18 160/88 97 Room Air 0 1745/DISPOSITION OF PATIENT WAITING ON HIGH SENSITIVITY TROPONIN RESULT FROM LAB. ANTICIPATE DISCHARGING PATIENT HOME IF NEGATIVE. DIAGNOSIS WE WILL BE ACUTE ANXIETY REACTION 180/SPOKE WITH THE LAB AND THEY ARE WE WILL BE THREE MORE MINUTES FOR HIGH SENSITIVITY TROPONIN RESULTS 180/TROPONIN IS FOUR, HEART SCORE IS THREE. PATIENT DISCHARGED HOME WITH A ACUTE ANXIETY REACTION/PANIC ATTACK AND HYPO KALEMIA. POTASSIUM WAS PLACED PATIENT DISCHARGED HOME WITH HYDROXYZINE AND TOLD TO SEE HER PRIMARY CARE DOCTOR HEART Score Response (Comments) Value History: Low suspicion (0) 0 Age: 45-65yrs (+1) 1 Risk Factors: 1-2 risk factors (+1) 1 Initial Troponin: Normal limit (0) 0 Total 2 Medical Decision Making MDM MDM: DIFFERENTIAL DIAGNOSIS: ACS/AMI/ELECTROLYTE IMBALANCE/DEHYDRATION/ANXIETY/PANIC ATTACK/PNEUMONIA/BRONCHITIS RATIONALE: TESTS CONSIDERED AND ORDERED SECONDARY TO SHARED DECISION MAKING INCLUDE: LABS/EKG/RADIOLOGY PREVIOUS OUTSIDE RECORDS REVIEWED: OLD ER VISITS. RISK OF COMPLICATION AND/OR MORBIDITY OR MORTALITY OF PATIENT MANAGEMENT: NONE MEDICATIONS-PER MEDICATION RECONCILIATION NEED FOR HOSPITALIZATION: PATIENT DOES NOT MEET CRITERIA FOR HOSPITALIZATION. NO NEED FOR EMERGENCY MAJOR/MINOR SURGERY: NO THERE ARE NO SOCIAL CONCERNS WITH THIS PATIENT. PRESCRIPTION DRUG MANAGEMENT HYDROXYZINE PAMOATE PRESCRIPTIONS WILL INCLUDE SYMPTOMATIC CARE PATIENT'S PRIOR EXTERNAL MEDICAL RECORDS FROM OTHER ER VISITS WERE REVIEWED BY ME INDICATED. PRIOR TESTING AND RESULTS FROM PREVIOUS VISITS WERE REVIEWED. PRIOR TESTS WERE TAKEN INTO ACCOUNT WITH MEDICAL DECISION MAKING AND RESOURCE UTILIZATION, INDEPENDENT HISTORIAN/HISTORIANS WERE USED TO OBTAIN COMPLETE MEDICAL HISTORY. I INDEPENDENTLY INTERPRETED THE TEST THAT WERE PERFORMED, RESULTS WERE REVIEWED BY ME AND CONSIDERED FINDINGS ON RADIOLOGY IF ORDERED. MEDICAL MANAGEMENT AND EXAMINATION INTERPRETATION DISCUSSIONS WERE HAD BY ME WITH OTHER QUALIFIED HEALTHCARE PROFESSIONALS INDICATED FOR THE PATIENT'S CARE. DX & DISP Disposition: Discharge Departure Impression: Primary Impression: Panic attack Additional Impressions: Hypokalemia, Hyperglycemia Condition: Stable Scripts Hydroxyzine Pamoate (Hydroxyzine Pamoate) 100 Mg Capsule 100 MG PO TIDP PRN for ANXIETY/INSOMNIA, #30 CAP Prov: NY MYERS GENERATOR REPAIRER 01/17/25 Additional Instructions: FOLLOW-UP WITH PRIMARY CARE PROVIDER IN 1 TO 2 DAYS. TAKE MEDICATIONS DIRECT ED HERE IN THE EMERGENCY ROOM. OKAY TO CONTINUE HOME MEDICATIONS UNLESS OTHERWISE DISCUSSED DURING YOUR VISIT IN THE EMERGENCY ROOM TODAY. RETURN TO YOUR NEAREST EMERGENCY ROOM IF SYMPTOMS WORSEN OR IF THERE IS NO IMPROVEMENT. CALL 911 IF YOU NEED IMMEDIATE ASSISTANCE. TAKE TYLENOL OR MOTRIN [id number]-UHL-CIVILFI NEEDED AND IF NO CONTRAINDICATIONS ARE PRESENT. INCREASE ORAL HYDRATION. A WOUND CULTURE OR URINE CULTURE WAS ORDERED HERE IN THE EMERGENCY ROOM DEPARTMENT PLEASE FOLLOW-UP WITH PRIMARY CARE PROVIDER AND ADVISE THEM TO GET REPEAT PORTS FROM OUR FACILITY. IF YOU HAD ANY RAYMUNDO WRAP/SPLINTS THAT WERE APPLIED HERE, PLEASE DO NOT REMOVE THEM UNTIL YOU SEE YOUR PRIMARY CARE OR SPECIALTY. TAKE HYDROXYZINE NEEDED FOR ANXIETY OR INSOMNIA. SEE YOUR PRIMARY CARE DOCTOR FOR FOLLOW UP. Referrals: NONE (PCP) Time of Disposition: 18:10 I have reviewed the case, and I agree with, Diagnosis and Plan NY MYERS NP Jan 17, 2025 14:11 APRIL KRAUSE DO Jan 17, 2025 18:41
[2025-01-17 15:36] LABS: CREATININE 0.7 mg/dL (0.5-1.0); POTASSIUM 3.4 mmol/L (3.5-5.1)
[2025-01-17 15:39] LABS: BASOPHILS # (AUTO) 0.04 K/uL (0.00-0.20); BASOPHILS % (AUTO) 0.5 % (0.0-5.0); EOSINOPHILS # (AUTO) 0.21 K/uL (0.00-0.70); EOSINOPHILS % (AUTO) 2.5 % (0.0-8.0); HEMATOCRIT 43.3 % (36-48); IMMATURE GRANULOCYTE ABSOLUTE 0.03 K/uL (0-1); LYMPHOCYTES # (AUTO) 1.3 K/uL (1.0-4.8); LYMPHOCYTES % (AUTO) 15.4 % (21.0-51.0); MEAN CORPUSCULAR HEMOGLOBIN 29.5 pg (27.0-33.0); MEAN CORPUSCULAR VOLUME 89.5 fL (79-99); MONOCYTES # (AUTO) 0.5 K/uL (0.1-1.0); MONOCYTES % (AUTO) 5.6 % (3.0-13.0); NEUTROPHILS # (AUTO) 6.2 K/uL (1.8-7.7); NEUTROPHILS % (AUTO) 75.6 % (40.0-77.0); PLATELET COUNT (AUTO) 274 K/uL (130-400); RED BLOOD CELL COUNT(AUTO) 4.84 MIL/uL (4.00-5.50); RED CELL DISTRIBUTION WIDTH 13.8 % (11.0-15.5); WHITE BLOOD COUNT (AUTO) 8.3 K/uL (4.8-10.8)
[2025-01-17 18:10] VITALS: BP 148/74; PULSE 92; RESP 18; TEMP 98.9; O2SAT 97
[2025-01-17] MEDS ORDERED: HYDR100C2 PO (18:12)
[2025-01-17] MEDS: PoTASSium BIcarbonate/CIT AC 25 MEQ TABLET.EFF PO SCH (18:14)
== END 2025-01-17 18:58 | disposition home or self-care (01) ==
LOC: EDH 13:33
DX: F41.0 Panic disorder [episodic paroxysmal anxiety] (principal); E87.6 Hypokalemia; E11.65 Type 2 diabetes mellitus with hyperglycemia; E66.01 Morbid (severe) obesity due to excess calories; E78.00 Pure hypercholesterolemia, unspecified; I10 Essential (primary) hypertension; K21.9 Gastro-esophageal reflux disease without esophagitis; Z79.52 Long term (current) use of systemic steroids; Z79.899 Other long term (current) drug therapy; Z90.49 Acquired absence of other specified parts of digestive tract
CPT/HCPCS: 36415; 71045; 80048; 84484; 85025; 93005; 99284

== ENCOUNTER 2025-08-06 19:11 | Emergency (ER) | payer BC ==
[~2025-08-06] VITALS: Ht 152.4 cm; Wt 117.5 kg
[~2025-08-06 19:11] MED LIST changes: +HYDR100C2 PO; +IBUP-1492 PO; -IBUP-2070 PO
--- NOTE | 2025-08-06 19:30 | ERN ---
ED Note History of Present Illness Stated Complaint: POST SX R/O INFECTION Chief Complaint: Post-Op Problem Time Seen by MD: 19:15 Dictation: This is a 55-year-old female extremely morbidly obese who presents to the emergency room with complaints of drainage from the postop wound. Apparently patient had bilateral mastectomy 10 days ago in the right breast incision site developed small amount of yellowish-white drainage which has an odor. She has been taking tramadol for pain and did not show any documented fever. No bl eeding from the site. Temperature 97.3 pulse 85 respirations 18 blood pressure 141/65 with a pulse oximetry of 97% on room air Chronic medical problems include diabetes mellitus type 2, hypertension, hypercholesterolemia, gastroesophageal reflux disease, breast cancer, anxiety. Allergies: Coded Allergies: No Allergy Information Available (Verified Allergy, Unknown, 09/10/21) No Known Drug Allergies (Unverified Allergy, Unknown, 06/15/23) Home Meds Active Scripts Hydroxyzine Pamoate (Hydroxyzine Pamoate) 100 Mg Capsule, 100 MG PO TIDP PRN for ANXIETY/INSOMNIA, #30 CAP Prov:NY MYERS NP 01/17/25 Pantoprazole Sodium (Protonix) 40 Mg Ectab, 1 TAB PO DAILY for 30 Days, #30 TAB 0 Refills Prov:FRANSICO TIDWELL MD 09/25/24 Ondansetron HCl (Zofran) 4 Mg/2 Ml Inj, 4 MG SL Q4PRN, #15 ML Prov:JOE MORGAN DO 09/05/24 Acetaminophen with Codeine (Acetaminophen-Cod #3 Tablet) 300 Mg-30 Mg Tablet, 1 TAB PO Q4H PRN for MODERATE PAIN, #15 TAB 0 Refills Prov:NY MYERS NP 07/06/24 Ondansetron (Ondansetron Odt) 4 Mg Tab.rapdis, 4 MG PO Q6HPRN PRN for nausea, #16 TAB 0 Refills Prov:NY MYERS NP 07/06/24 Pantoprazole Sodium (Protonix) 40 Mg Ectab, 40 MG PO DAILY for 30 Days, #30 TAB.EC Prov:FRANSICO TIDWELL MD 07/05/24 Ketorolac Tromethamine (Ketorolac Tromethamine) 10 Mg Tablet, 10 MG PO BID for 5 Days, #10 TAB Prov:CAIT HOLGUIN 04/21/24 Cyclobenzaprine HCl (Cyclobenzaprine HCl) 10 Mg Tablet, 10 MG PO DAILYDINNER for 7 Days, #7 TAB Prov:CAIT HOLGUIN PA 04/21/24 Cephalexin Monohydrate (Keflex) 500 Mg Cap, 500 MG PO BID for 7 Days, #28 CAP Prov:CAIT HOLGUIN PA 04/18/24 Ketorolac Tromethamine (Ketorolac Tromethamine) 10 Mg Tablet, 10 MG PO BID for 5 Days, #10 TAB Prov:CAIT HOLGUIN PA 04/18/24 Methocarbamol (Robaxin) 750 Mg Tab, 750 MG PO BID for 5 Days, #10 TAB Prov:CAIT HOLGUIN PA 04/18/24 Methocarbamol (Robaxin) 750 Mg Tab, 750 MG PO TIDP PRN for PAIN, #15 TAB Prov:MENDY CARRILLO I PA 03/27/24 D-Methorphan Hb/P-Epd HCl/Bpm (Bromfed Dm Cough Syrup) 2 Mg-30 Mg-10 Mg/5 Ml Syrup, 5 ML PO Q6HPRN PRN for COUGH/COLD SYMPTOMS, #240 ML Prov:VERONICA MENODZALUPE FILM LIBRARY CLERK 01/03/24 Fluticasone Propionate (Flonase Nasal Irene) 50 Mcg/Actuation Irene, 1 SPRAY NASAL BID for 7 Days, #50 SPRAY Prov:SHIRA MENDOZABENTON FILM LIBRARY CLERK 01/03/24 Prednisone (Prednisone) 20 Mg Tablet, 2 TAB PO DAILY for 5 Days, #10 TAB 0 Ref ills Prov:SHIRA MENDOZABENTON FILM LIBRARY CLERK 01/03/24 Ibuprofen (Ibuprofen) 600 Mg Tablet, 600 MG PO Q6H PRN for PAIN, #30 TAB Prov:VERONICA MENDOZALUPE FILM LIBRARY CLERK 01/03/24 Cephalexin Monohydrate (Keflex) 500 Mg Cap, 500 MG PO TID for 7 Days, #21 CAP Prov:JEREMY GUZMAN V FILM LIBRARY CLERK 10/29/23 Famotidine (Famotidine) 20 Mg Tablet, 20 MG PO BID, #14 TAB Prov:JEREMY GUZMAN V FILM LIBRARY CLERK 06/15/23 Nitrofurantoin Monohyd/M-Cryst (Macrobid 100 mg Capsule) 100 Mg Capsule, 100 MG PO BID for 5 Days, #10 CAP Prov:THOMASJEREMY RECINOS V FILM LIBRARY CLERK 06/15/23 Prednisone (Prednisone) 20 Mg Tablet, 20 MG PO ONCE A DAY for FACE SWELLING for 7 Days, #7 TAB Prov:PEDRO PABLO PRATT DNP 12/22/22 Ibuprofen (Ibuprofen) 600 Mg Tablet, 600 MG PO Q6H PRN for PAIN, #30 TAB Prov:RAFIQ MCCORMACK MD 09/29/22 Acetaminophen (Tylenol) 325 Mg Tablet, 650 MG PO Q4HPRN, #50 TAB Prov:FIGUEROA SAVAGE 09/10/21 Cyclobenzaprine HCl (Flexeril) 10 Mg Tab, 10 MG PO BID, #30 TAB Prov:FIGUEROA SAVAGE 09/10/21 Reported Medications Omeprazole (Omeprazole) 40 Mg Capsule.dr, 1 CAP PO DAILY for 30 Days, #30 CAP 0 Refills 09/05/24 Citalopram Hydrobromide (Citalopram HBr) 40 Mg Tablet, 1 TAB PO DAILY for 30 Days, #30 TAB 0 Refills 09/05/24 Lisinopril/Hydrochlorothiazide (Lisinopril-Hctz 20-25 mg Tab) 20 Mg-25 Mg Tablet, 1 TAB PO DAILY for 30 Days, #30 TAB 0 Refills 09/05/24 Past Medical History Past Medical History: Anxiety, Cancer, Diabetes-Type II, GERD, High Cholesterol, Hypertension Additional Past Medical Hx: Morbid obese, BREAST CANCER Surgical History: Cholecystectomy, Other Surgical History Other: R FOOT SX,BILATRAL BREAST MASECTOMY Family History: DM Social History: Negative, Lives with family History: Not Applicable RN Note Reviewed/Agreed w/PFSH: Yes Review of System Dictation Constitutional: Negative for fever,chills, and weight loss Eyes: Negative for injury, pain,redness, and discharge ENT: Negative for injury,pain or swelling Breast--drainage from the right breast incision Cardiovascular: Negative for chest pain, palpitations, and edema Respiratory: Negative for shortness of breath, cough, and wheezing, Abdomen/GI: Negative for abdominal pain, nausea, vomiting, diarrhea, and constipation Back: Negative for injury and pain : Negative for injury, bleeding and discharge MS/Extremity: Negative for injury and deformity Skin: Negative for rash, and discoloration Neuro: Negative for headache, weakness, numbness, tingling, and seizure Psych: Negative for suicide ideation, homicidal ideation, and hallucinations Initial Vital Sign VS Vital Signs Date Time Temp Pulse Resp B/P (MAP) Pulse Ox O2 Delivery O2 Flow Rate FiO2 08/06/25 19:12 97.3 85 18 141/65 97 Room Air 08/06/25 19:30 0 21 Physical Exam Dictation General: awake, alert, NAD Head/Face: Normocephalic, atraumatic Eyes: PERRL, EOMI, vision at baseline ENT: oral cavity clear, TMs clear, no signs of infection Neck: Trachea midline, supple, no nuchal rigidity Cardiovascular: RRR, normal S1/S2, No MRGs, no JVD Breast exam bilateral lumpectomies with a linear incisions. Steri-Strips in p lace. No erythema no obvious purulent drainage noted. The area of concern by the patient on the right breast appears to be friction from her support pro Respiratory: CTAB, no respiratory distress, No rales or wheezes Abdomen: Soft, non-tender, non-distended, normal bowel sounds, no guarding or rebound. Skin: Warm, dry, normal turgor, no rash MS/Extremity: Pulses equal, no cyanosis, neurovascular intact, FROM Neuro: COAx4, GCS 15, strength 5/5, CN 2-12 intact, normal cerebellar exam, normal gait, Psych: Normal behavior, mood, and affect normal Extremities-trace edema without any palpable cords, Homans sign is negative Results (Laboratory/Radiology) Laboratory/Radiology Laboratory Tests Test 08/06/25 19:24 08/06/25 20:15 White Blood Count 8.9 K/uL (4.8-10.8) Red Blood Count 4.81 MIL/uL (4.00-5.50) Hemoglobin 14.0 g/dL (12.0-16.0) Hematocrit 41.2 % (36-48) Mean Corpuscular Volume 85.7 fL (79-99) Mean Corpuscular Hemoglobin 29.1 pg (27.0-33.0) Mean Corpuscular Hemoglobin Concent 34.0 g/dL (32.0-36.0) Red Cell Distribution Width 13.2 % (11.0-15.5) Platelet Count 402 K/uL (130-400) H Mean Platelet Volume 9.0 fL (7.5-10.5) Immature Granulocyte % (Auto) 0.6 % (0-1) Neutrophils (%) (Auto) 66.4 % (40.0-77.0) Lymphocytes (%) (Auto) 21.4 % (21.0-51.0) Monocytes (%) (Auto) 6.2 % (3.0-13.0) Eosinophils (%) (Auto) 4.7 % (0.0-8.0) Basophils (%) (Auto) 0.7 % (0.0-5.0) Neutrophils # (Auto) 5.9 K/uL (1.8-7.7) Lymphocytes # (Auto) 1.9 K/uL (1.0-4.8) Monocytes # (Auto) 0.6 K/uL (0.1-1.0) Eosinophils # (Auto) 0.42 K/uL (0.00-0.70) Basophils # (Auto) 0.06 K/uL (0.00-0.20) Absolute Immature Granulocyte (auto 0.05 K/uL (0-1) Nucleated Red Blood Cells 0.0 % (0.0-0.19) Sodium Level 139 mmol/L (136-145) Potassium Level 3.7 mmol/L (3.5-5.1) Chloride Level 102 mmol/L (101-111) Carbon Dioxide Level 31 mmol/L (21-32) Blood Urea Nitrogen 10 mg/dL (7-18) Creatinine 0.7 mg/dL (0.5-1.0) Glomerular Filtration Rate Calc 101 mL/min (>90) Random Glucose 98 mg/dL (70-105) Lactic Acid Level 1.8 mmol/L (0.8-2.5) Total Calcium 8.8 mg/dL (8.5-10.1) Urine Color LIGHT-YELLOW (YELLOW) Urine Appearance CLEAR (CLEAR) Urine pH 6.0 (5.0-8.0) Urine Specific [place] 1.008 (1.001-1.031) Urine Protein NEGATIVE mg/dL (NEGATIVE) Urine Glucose (UA) NEGATIVE mg/dL (NEGATIVE) Urine Ketones NEGATIVE mg/dL (NEGATIVE) Urine Occult Blood NEGATIVE (NEGATIVE) Urine Nitrate NEGATIVE (NEGATIVE) Urine Bilirubin NEGATIVE mg/dL (NEGATIVE) Urine Urobilinogen 0.2 mg/dL (0.2-1.0) Urine Leukocyte Esterase 25 Yahaira/uL (NEGATIVE) H Urine RBC 0-1 /HPF (0-1) Urine WBC 2-5 /HPF (0-1) H Urine Squamous Epithelial Cells RARE /HPF (0-2) Urine Bacteria None /HPF (None Seen) Labs Reviewed?: Yes ED Course ED Course Orders Procedure Category Date Status Time Cbc With Differential LAB 08/06/25 Complete 19:15 Basic Metabolic Panel LAB 08/06/25 Complete 19:15 Urinalysis Profile LAB 08/06/25 Complete 19:15 Lactic Acid LAB 08/06/25 Complete 19:23 Vital Signs Date Time Temp Pulse Resp B/P (MAP) Pulse Ox O2 Delivery O2 Flow Rate FiO2 08/06/25 19:30 82 18 136/41 98 Room Air* 0 21 08/06/25 19:12 97.3 85 18 141/65 97 Room Air We will perform diagnostic labs, advanced imaging and administer medications according to the patient's complaint. Once the results are available, will review and personally interpreted the labs to rule out any acute life- threatening emergency the trach require immediate intervention and treatment. I will then re-evaluate the patient after treatment and diagnostic exams have return to determine whether the patient requires any further testing, can safely be discharged home or need further admission to hospital for additional treatment and evaluation. Medical Decision Making MDM Differential diagnosis: Seroma, wound infection, contact dermatitis This is a 55-year-old female extremely morbidly obese who presents to the emergency room with complaints of drainage from the postop wound. Apparently patient had bilateral mastectomy 10 days ago in the right breast incision site developed small amount of yellowish-white drainage which has an odor. She has been taking tramadol for pain and did not show any documented fever. No bleeding from the site. Temperature 97.3 pulse 85 respirations 18 blood pressure 141/65 with a pulse oximetry of 97% on room air Chronic medical problems include diabetes mellitus type 2, hypertension, hypercholesterolemia, gastroesophageal reflux disease, breast cancer, anxiety. 8:40 p.m. labs reviewed CBC BNP 7 are within normal limits I updated the patient and her spouse on lab results and also on exam I do not see any obvious purulent drainage but a small area of friction skin breakdown from her support bra. I have given her some nonadhesive gauze to place in the lower part of the right breast incision to avoid friction from her support bra Rationale: Tests considered and ordered secondary to shared decision making include: Previous outside records reviewed: Old ER visits. Risk of complication and/or morbidity or mortality of patient management: None Medications-Per medication reconciliation Need for hospitalization: Patient does not meet criteria for hospitalization. Need for emergency major/minor surgery: No There are no social concerns with this patient. Prescription drug management Prescriptions will include symptomatic care Patient's prior external medical records from other ER visits were reviewed by me as indicated. Prior testing and results from previous visits were reviewed. Prior tests were taken into account with medical decision making and resource utilization, independent historian/historians were used to obtain complete medical history. I independently interpreted the test that were performed, results were reviewed by me and considered findings on radiology if ordered. Medical management and examination interpretation discussions were had by me with other qualified healthcare professionals as indicated for the patient's care. Problem List Problem List: (1) Status post bilateral mastectomy (2) Postoperative complication of skin involving drainage from surgical wound DX & DISP Disposition: Discharge Departure Impression: Primary Impression: Status post bilateral mastectomy Additional Impression: Postoperative complication of skin involving drainage from surgical wound Condition: Stable Additional Instructions: Patient and the caregiver have been informed of all the diagnostic tests and the imaging conducted during the today's visit to the emergency room and has verbalized understanding of the results I have personally reviewed and interpreted all diagnostic exams performed here in the ER today as well as the vital signs documented by the nursing staff. The patient is now being discharged to home and should follow up with the primary care physician or the specialist as directed by the ER staff. Follow-up with primary care provider in 1 to 2 days. Take medications as directed here in the emergency room. Okay to continue home medications unless otherwise discussed during your visit in the emergency room today. Return to your nearest emergency room if symptoms worsen or if there is no improvement. Call 911 if you need immediate assistance. Take Tylenol or Motrin over-the- counter as needed and if no contraindications are present. Increase oral hydration. A wound culture or urine culture was ordered here in the emergency room department please follow-up with primary care provider and advise them to get repeat ports from our facility. If you had any Rohit wrap/splints that were applied here, please do not remove them until you see your primary care or specialty. Patient must follow up with her breast surgeon Referrals: SELF,REFERRAL (PCP) GHAZAL MORENO MD Aug 06, 2025 19:30
--- NOTE | 2025-08-06 19:31 | NUR ---
REPORTS CAME TO HAVE SURGICAL WOUND FROM BILATERAL MASTECTOMY EVALUATED. REPORTS MASTECTOMY DONE BY DR TONY AT [facility]. DENIES PAIN, FEVER, CHILLS, OR DRAINAGE
[2025-08-06 19:32] LABS: IMMATURE GRANULOCYTE ABSOLUTE 0.05 K/uL (0-1); NUCLEATED RED BLOOD CELLS 0.0 % (0.0-0.19); PLATELET COUNT (AUTO) 402 K/uL (130-400); RED BLOOD CELL COUNT(AUTO) 4.81 MIL/uL (4.00-5.50); RED CELL DISTRIBUTION WIDTH 13.2 % (11.0-15.5); WHITE BLOOD COUNT (AUTO) 8.9 K/uL (4.8-10.8)
[2025-08-06 19:43] LABS: CREATININE 0.7 mg/dL (0.5-1.0); GLOMERULAR FILTR. RATE CALC 101.0 mL/min (>90); GLUCOSE,RANDOM 98.0 mg/dL (70-105); SODIUM SERUM 139.0 mmol/L (136-145); UREA NITROGEN, BLOOD 10.0 mg/dL (7-18)
[2025-08-06 20:27] LABS: APPEARANCE,URINE CLEAR (CLEAR); GLUCOSE, URINE (UA) NEGATIVE (NEGATIVE); NITRATE,URINE NEGATIVE (NEGATIVE); OCCULT BLOOD,URINE NEGATIVE (NEGATIVE)
[2025-08-06 20:29] LABS: ADD UA MICROSCOPIC YES
[2025-08-06 20:30] LABS: SQUAMOUS EPITHELIAL CELL,UR RARE /HPF (0-2)
[2025-08-06 20:32] LABS: LEUKOCYTE ESTERASE ,URINE 25 Leu/uL (NEGATIVE)
[2025-08-06 20:41] VITALS: BP 111/58; PULSE 82; RESP 18; TEMP 98.4; O2SAT 98
== END 2025-08-06 20:47 | disposition home or self-care (01) ==
LOC: EDH 19:11
DX: L76.82 Other postprocedural complications of skin and subcutaneous tissue (principal); F41.9 Anxiety disorder, unspecified; E11.9 Type 2 diabetes mellitus without complications; E78.00 Pure hypercholesterolemia, unspecified; I10 Essential (primary) hypertension; E66.01 Morbid (severe) obesity due to excess calories; Z79.52 Long term (current) use of systemic steroids; Z79.899 Other long term (current) drug therapy; Z85.3 Personal history of malignant neoplasm of breast; Z90.13 Acquired absence of bilateral breasts and nipples; Z90.49 Acquired absence of other specified parts of digestive tract
CPT/HCPCS: 36415; 80048; 81001; 83605; 85025; 99283

== ENCOUNTER 2025-08-13 18:16 | Emergency (ER) | payer BC ==
[~2025-08-13] VITALS: Ht 152.4 cm; Wt 117.5 kg
--- NOTE | 2025-08-13 18:43 | ERN ---
ED Note History of Present Illness Stated Complaint: FEVER, POST SX Chief Complaint: Fever Time Seen by MD: 18:31 Time Seen by Midlevel: 18:31 Dictation: Ms. Stearns is a 55 year old female with history of my type 2 diabetes, anxiety, morbid obesity, and breast cancer who presented to the emergency department this evening for evaluation of fever. She is status post double mastectomy with expanders on 07/27/25 at [facility] with Dr. Guerra. She states that about a week ago the incision on the right opened up and she notices that it bleeds when she performs wound care (has been using hydrogen peroxide). She continues to have breast pain/tightness. She states she has been experiencing fatigue, general weakness, chills, and fever x since Friday. She states T-max 102. She course of antibiotics (Augmentin) yesterday after her surgeon called in prescription. She denies shortness of breath, cough, chest pain, palpitations, edema, abdominal pain, nausea, vomiting, hematemesis, constipation, diarrhea, melena, hematochezia, dysuria, headache, dizziness, or focal weakness/paresthesia. Upon arrival to the ED noted temperature 99.2 She denies need for analgesic at this time. Allergies: Coded Allergies: No Allergy Information Available (Verified Allergy, Unknown, 09/10/21) No Known Drug Allergies (Unverified Allergy, Unknown, 06/15/23) Home Meds Active Scripts Hydroxyzine Pamoate (Hydroxyzine Pamoate) 100 Mg Capsule, 100 MG PO TIDP PRN for ANXIETY/INSOMNIA, #30 CAP Prov:NY MYERS NP 01/17/25 Pantoprazole Sodium (Protonix) 40 Mg Ectab, 1 TAB PO DAILY for 30 Days, #30 TAB 0 Refills Prov:FRANSICO TIDWELL MD 09/25/24 Ondansetron HCl (Zofran) 4 Mg/2 Ml Inj, 4 MG SL Q4PRN, #15 ML Prov:JOE MORGAN DO 09/05/24 Acetaminophen with Codeine (Acetaminophen-Cod #3 Tablet) 300 Mg-30 Mg Tablet, 1 TAB PO Q4H PRN for MODERATE PAIN, #15 TAB 0 Refills Prov:NY MYERS NP 07/06/24 Ondansetron (Ondansetron Odt) 4 Mg Tab.rapdis, 4 MG PO Q6HPRN PRN for nausea, #16 TAB 0 Refills Prov:NY MYERS NP 07/06/24 Pantoprazole Sodium (Protonix) 40 Mg Ectab, 40 MG PO DAILY for 30 Days, #30 TAB.EC Prov:FRANSICO TIDWELL MD 07/05/24 Ketorolac Tromethamine (Ketorolac Tromethamine) 10 Mg Tablet, 10 MG PO BID for 5 Days, #10 TAB Prov:CAIT HOLGUIN 04/21/24 Cyclobenzaprine HCl (Cyclobenzaprine HCl) 10 Mg Tablet, 10 MG PO DAILYDINNER for 7 Days, #7 TAB Prov:CAIT HOLGUIN 04/21/24 Cephalexin Monohydrate (Keflex) 500 Mg Cap, 500 MG PO BID for 7 Days, #28 CAP Prov:CAIT HOLGUIN 04/18/24 Ketorolac Tromethamine (Ketorolac Tromethamine) 10 Mg Tablet, 10 MG PO BID for 5 Days, #10 TAB Prov:CAIT HOLGUIN 04/18/24 Methocarbamol (Robaxin) 750 Mg Tab, 750 MG PO BID for 5 Days, #10 TAB Prov:CAIT HOLGUIN 04/18/24 Methocarbamol (Robaxin) 750 Mg Tab, 750 MG PO TIDP PRN for PAIN, #15 TAB Prov:MENDY CARRILLO 03/27/24 D-Methorphan Hb/P-Epd HCl/Bpm (Bromfed Dm Cough Syrup) 2 Mg-30 Mg-10 Mg/5 Ml Syrup, 5 ML PO Q6HPRN PRN for COUGH/COLD SYMPTOMS, #240 ML Prov:BENTON MENDOZA [employer]ANSCRIBING OPERATOR HEAD 01/03/24 Fluticasone Propionate (Flonase Nasal [place]) 50 Mcg/Actuation [place], 1 SPRAY NASAL BID for 7 Days, #50 SPRAY Prov:BENTON MENDOZA TRANSCRIBING OPERATOR HEAD 01/03/24 Prednisone (Prednisone) 20 Mg Tablet, 2 TAB PO DAILY for 5 Days, #10 TAB 0 Refills Prov:BENTON MENDOZA TRANSCRIBING OPERATOR HEAD 01/03/24 Ibuprofen (Ibuprofen) 600 Mg Tablet, 600 MG PO Q6H PRN for PAIN, #30 TAB Prov:BENTON MENDOZA TRANSCRIBING OPERATOR HEAD 01/03/24 Cephalexin Monohydrate (Keflex) 500 Mg Cap, 500 MG PO TID for 7 Days, #21 CAP Prov:JEREMY GUZMAN Zurdo TRANSCRIBING OPERATOR HEAD 10/29/23 Famotidine (Famotidine) 20 Mg Tablet, 20 MG PO BID, #14 TAB Prov:THOMASJEREMY Renner TRANSCRIBING OPERATOR HEAD 06/15/23 Nitrofurantoin Monohyd/M-Cryst (Macrobid 100 mg Capsule) 100 Mg Capsule, 100 MG PO BID for 5 Days, #10 CAP Prov:THOMASJEREMY V TRANSCRIBING OPERATOR HEAD 06/15/23 Prednisone (Prednisone) 20 Mg Tablet, 20 MG PO ONCE A DAY for FACE SWELLING for 7 Days, #7 TAB Prov:PEDRO PABLO PRATT DNP 12/22/22 Ibuprofen (Ibuprofen) 600 Mg Tablet, 600 MG PO Q6H PRN for PAIN, #30 TAB Prov:RAFIQ MCCORMACK MD 09/29/22 Acetaminophen (Tylenol) 325 Mg Tablet, 650 MG PO Q4HPRN, #50 TAB Prov:FIGUEROA SAVAGE 09/10/21 Cyclobenzaprine HCl (Flexeril) 10 Mg Tab, 10 MG PO BID, #30 TAB Prov:FIGUEROA SAVAGE 09/10/21 Reported Medications Omeprazole (Omeprazole) 40 Mg Capsule.dr, 1 CAP PO DAILY for 30 Days, #30 CAP 0 Refills 09/05/24 Citalopram Hydrobromide (Citalopram HBr) 40 Mg Tablet, 1 TAB PO DAILY for 30 Days, #30 TAB 0 Refills 09/05/24 Lisinopril/Hydrochlorothiazide (Lisinopril-Hctz 20-25 mg Tab) 20 Mg-25 Mg Tabl et, 1 TAB PO DAILY for 30 Days, #30 TAB 0 Refills 09/05/24 Past Medical History Past Medical History: Anxiety, Cancer, Diabetes-Type II, GERD, High Cholesterol, Hypertension Additional Past Medical Hx: Morbid obese, BREAST CANCER Surgical History: Cholecystectomy, Other Surgical History Other: R FOOT SX,BILATRAL BREAST MASECTOMY PSYCH History: no pertinent psych hx Family History: DM Social History: Negative, Lives with family History: Not Applicable RN Note Reviewed/Agreed w/PFSH: Yes Review of System Dictation REVIEW OF SYSTEMS: CONSTITUTIONAL: Patient denies fevers, chills, sweats and weight changes. EYES: Patient denies any visual symptoms. EARS, NOSE, AND THROAT: No difficulties with hearing. No symptoms of rhinitis or sore throat. CARDIOVASCULAR: Patient denies chest pains, palpitations, orthopnea and paroxysmal nocturnal dyspnea. RESPIRATORY: No dyspnea on exertion, no wheezing or cough. GI: No nausea, vomiting, diarrhea, constipation, abdominal pain, hematochezia or melena. : No urinary hesitancy or dribbling. No nocturia or urinary frequency. No abnormal urethral discharge. MUSCULOSKELETAL: No myalgias or arthralgias. NEUROLOGIC: No chronic headaches, no seizures. Patient denies numbness, tingling or weakness. PSYCHIATRIC: Patient denies problems with mood disturbance. No problems with anxiety. ENDOCRINE: No excessive urination or excessive thirst. DERMATOLOGIC: Initial Vital Sign VS Vital Signs Date Time Temp Pulse Resp B/P (MAP) Pulse Ox O2 Delivery O2 Flow Rate FiO2 08/13/25 18:30 99.1 87 20 158/67 97 Room Air 08/13/25 18:41 0 21 Physical Exam Dictation Vital signs: Reviewed. temp 99.2 Constitutional: No acute distress. Non-toxic appearing. Significant other at be dside. Head/Face: Normocephalic, atraumatic. Eyes: Periorbital areas with no swelling, redness, or edema. Lids and lashes are normal. Conjunctival injection is absent. Sclera anicteric. Pupils equal, round, reactive to light. ENT: Pinnas intact and no signs of trauma or erythema. Ear canals clear and no discharge. TMs no erythema. No nasal discharge or bleeding noted. Oropharynx with no exudate, redness, swelling, masses, exudates, or evidence of obstruction. Uvula midline. Mucous membranes moist. Neck: Trachea midline, no masses palpated, and no cervical lymphadenopathy. No swelling. Supple, full range of motion. Chest/Axilla: No tenderness, no crepitus, no paradoxical movement, no retractions. Breasts are both soft without induration. The only exception is the area noted below (right breast wound). Cardiovascular: Regular rate, regular rhythm, no murmur, no gallops. Symmetric pulses. No peripheral edema. BP 158/67. Respiratory: Respirations even and unlabored. Lung sounds clear; no wheezes, rales or rhonchi. Room air spo2 97%. Gastrointestinal: Inspection is normal. No distention is appreciated. Bowel sounds are normal. No mass or organomegaly . There is no tenderness. No rebound. No rigidity. No voluntary or involuntary guarding. No [place]'s sign. Neurological: Normal speech, gross motor function intact, gross sensory function intact. No focal weakness/Paresthesia. Musculoskeletal/Extremities: All extremities have full range of motion, no pain or tenderness on palpation. Symmetric pulses. Integumentary: Skin is normal color, warm and dry. Cap refill less than 2 seconds. She has approximate 2.5 x 1 cm open wound just inferior to the nipple area at the mastectomy/spray unit feeder state. The wound has peeling or macerated surrounding skin, and there is a very small amount of purulent drainage noted. There is a small amount of blood on dressing. Surrounding tissue shows no signi ficant erythema or fluctuance but the wound edges appear moist and friable. Results (Laboratory/Radiology) Laboratory/Radiology Laboratory Tests Test 08/13/25 18:41 08/13/25 19:04 08/13/25 19:50 Urine Color LIGHT-YELLOW (YELLOW) Urine Appearance CLEAR (CLEAR) Urine pH 5.5 (5.0-8.0) Urine Specific [place] 1.016 (1.001-1.031) Urine Protein NEGATIVE mg/dL (NEGATIVE) Urine Glucose (UA) NEGATIVE mg/dL (NEGATIVE) Urine Ketones NEGATIVE mg/dL (NEGATIVE) Urine Occult Blood SMALL (NEGATIVE) H Urine Nitrate NEGATIVE (NEGATIVE) Urine Bilirubin NEGATIVE mg/dL (NEGATIVE) Urine Urobilinogen 0.2 mg/dL (0.2-1.0) Urine Leukocyte Esterase 25 [place]/uL (NEGATIVE) H Urine RBC 6-10 /HPF (0-1) H Urine WBC 2-5 /HPF (0-1) H Urine Squamous Epithelial Cells RARE /HPF (0-2) Urine Bacteria None /HPF (None Seen) White Blood Count 11.8 K/uL (4.8-10.8) H Red Blood Count 4.47 MIL/uL (4.00-5.50) Hemoglobin 12.7 g/dL (12.0-16.0) Hematocrit 40.0 % (36-48) Mean Corpuscular Volume 89.5 fL (79-99) Mean Corpuscular Hemoglobin 28.4 pg (27.0-33.0) Mean Corpuscular Hemoglobin Concent 31.8 g/dL (32.0-36.0) L Red Cell Distribution Width 13.6 % (11.0-15.5) Platelet Count 323 K/uL (130-400) Mean Platelet Volume 9.3 fL (7.5-10.5) Immature Granulocyte % (Auto) 1.5 % (0-1) H Neutrophils (%) (Auto) 71.5 % (40.0-77.0) Lymphocytes (%) (Auto) 17.2 % (21.0-51.0) L Monocytes (%) (Auto) 7.1 % (3.0-13.0) Eosinophils (%) (Auto) 2.4 % (0.0-8.0) Basophils (%) (Auto) 0.3 % (0.0-5.0) Neutrophils # (Auto) 8.4 K/uL (1.8-7.7) H Lymphocytes # (Auto) 2.0 K/uL (1.0-4.8) Monocytes # (Auto) 0.8 K/uL (0.1-1.0) Eosinophils # (Auto) 0.28 K/uL (0.00-0.70) Basophils # (Auto) 0.04 K/uL (0.00-0.20) Absolute Immature Granulocyte (auto 0.18 K/uL (0-1) Nucleated Red Blood Cells 0.0 % (0.0-0.19) Sodium Level 142 mmol/L (136-145) Potassium Level 3.9 mmol/L (3.5-5.1) Chloride Level 106 mmol/L (101-111) Carbon Dioxide Level 25 mmol/L (21-32) Blood Urea Nitrogen 12 mg/dL (7-18) Creatinine 0.7 mg/dL (0.5-1.0) Glomerular Filtration Rate Calc 101 mL/min (>90) Random Glucose 114 mg/dL (70-105) H Lactic Acid Level 2.1 mmol/L (0.8-2.5) Total Calcium 8.1 mg/dL (8.5-10.1) L Total Bilirubin 0.3 mg/dL (0.2-1.0) Direct Bilirubin 0.1 mg/dL (0.0-0.3) Aspartate Amino Transf (AST/SGOT) 16 U/L (10-37) Alanine Aminotransferase (ALT/SGPT) 17 U/L (12-78) Alkaline Phosphatase 102 U/L (50-136) Total Protein 6.6 g/dL (6.0-8.3) Albumin 2.7 g/dL (3.5-5.0) L Procalcitonin < 0.05 ng/mL (0.05-0.5) L Influenza Type A Antigen Negative For Type A Influenza Type B Antigen Negative For Type B SARS-CoV-2, RNA, NAAT NEGATIVE SARS CoV-2 Labs Reviewed?: Yes ED Course ED Course Orders Procedure Category Date Status Time Blood Cult COLLIN 08/13/25 In Process 18:40 Cbc With Differential LAB 08/13/25 Complete 18:40 Basic Metabolic Panel LAB 08/13/25 Complete 18:40 Hepatic Function Panel LAB 08/13/25 Complete 18:40 Lactic Acid LAB 08/13/25 Complete 18:40 Urinalysis Profile LAB 08/13/25 Complete 18:40 0.9%Nacl 1000ml (Ns PHA 08/13/25 Complete 1000ml) 19:00 Chest 1vw RAD 08/13/25 Resulted 19:05 Aerobic Culture COLLIN 08/13/25 In Process 19:05 Anaerobic Culture COLLIN 08/13/25 In Process 19:05 Influenza Type A & B, LAB 08/13/25 Complete Rapid 19:12 Covid Rna Naat LAB 08/13/25 Complete 19:12 Cefepime Hcl 2 Gm PHA 08/13/25 Complete Vial (Maxipime 2 Gm Vi 19:30 Us Breast Limited 08/13/25 Resulted Unilateral 19:31 Vancomycin 1g/250ml PHA 08/13/25 Complete Kit (Vancomycin 1g/2 20:00 Procalcitonin LAB 08/13/25 Complete 20:26 Lidocaine 1%-Epi PHA 08/13/25 Complete 1:100,000 (Lidocaine 21:00 Aerobic Culture COLLIN 08/13/25 Logged 21:33 Anaerobic Culture COLLIN 08/13/25 Logged 21:33 Lactic Acid (Removed) LAB 08/13/25 Logged 22:18 Current Medications Medications (Trade) Dose Ordered Sig/Giuseppe Route PRN Reason Start Time Stop Time Status Last Admin Dose Admin Cefepime HCl (MAXipime 2 gm vial) 2 gm ONCE ONCE IVPB 08/13/25 19:30 08/13/25 19:31 DC 08/13/25 19:49 Lidocaine/ Epinephrine (Lidocaine 1%-Epi 1:100,000) 20 ml ONCE ONCE IJ 08/13/25 21:00 08/13/25 21:01 DC Sodium Chloride 1,000 ml @ 0 mls/hr ONCE ONCE IV 08/13/25 19:00 08/13/25 19:01 DC 08/13/25 19:50 Vancomycin HCl (Vancomycin 1g/ 250ml Kit) 1 gm ONCE ONCE IV 08/13/25 20:00 08/13/25 20:01 DC 08/13/25 19:50 Vital Signs Date Time Temp Pulse Resp B/P (MAP) Pulse Ox O2 Delivery O2 Flow Rate FiO2 08/13/25 18:41 99.1 87 20 158/67 97 Room Air* 0 21 08/13/25 18:30 99.1 87 20 158/67 97 Room Air Laboratory findings as noted below. Initial lactic acid 2.1, WBCs 11.1, glucose 114, Ca 8.1, and albumin 2.7. Ultrasound of the right breast revealed While in ED she received doses cefepime, vancomycin, and NS 1000 mL IV as bolus. Medical Decision Making MDM The patient's right breast is larger than her left breast suggesting a fluid collection. There was no overt cellulitis but we obtained an ultrasound of the right breast to see if there was a fluid collection around the implant. The ultrasound did show a large fluid collection present on the right breast but not on the left breast surrounding her implants. I withdrew some fluid from her right breast and it was serosanguineous possibly cloudy. It was sent off for culture and sensitivity. Patient was also given vancomycin and cefepime. Patient's lactic acid was two when she arrived she has received antibiotics and she has received a L of fluid I will repeat the lactic acid if it is normal I will discharge her from the ED. She can continue taking her Augmentin and then follow-up with her breast surgeon. DX & DISP Disposition: Discharge Departure Impression: Primary Impression: Abscess of right breast unrelated to or Condition: Stable Additional Instructions: I have removed some of the fluid from your right breast it did appear cloudy and bloody. I have sent it to the lab for a culture. We have also given you some fluid here as you had some signs of dehydration. It is safe for you to go home. You need to continue taking your oral antibiotics. Please follow-up with your breast surgeon or the next day. Referrals: SELF,REFERRAL (PCP) KARINA PAPAPS NP Aug 13, 2025 18:43 ALIS STARKEY MD Aug 13, 2025 22:31
[2025-08-13 18:55] LABS: APPEARANCE,URINE CLEAR (CLEAR); GLUCOSE, URINE (UA) NEGATIVE (NEGATIVE); LEUKOCYTE ESTERASE ,URINE 25 Leu/uL (NEGATIVE); NITRATE,URINE NEGATIVE (NEGATIVE); OCCULT BLOOD,URINE SMALL (NEGATIVE)
[2025-08-13 19:12] LABS: ADD UA MICROSCOPIC YES
[2025-08-13 19:13] LABS: SQUAMOUS EPITHELIAL CELL,UR RARE /HPF (0-2)
[2025-08-13 19:18] LABS: IMMATURE GRANULOCYTE ABSOLUTE 0.18 K/uL (0-1); NUCLEATED RED BLOOD CELLS 0.0 % (0.0-0.19); PLATELET COUNT (AUTO) 323 K/uL (130-400); RED BLOOD CELL COUNT(AUTO) 4.47 MIL/uL (4.00-5.50); RED CELL DISTRIBUTION WIDTH 13.6 % (11.0-15.5); WHITE BLOOD COUNT (AUTO) 11.8 K/uL (4.8-10.8)
[2025-08-13 19:27] LABS: CREATININE 0.7 mg/dL (0.5-1.0); GLOMERULAR FILTR. RATE CALC 101.0 mL/min (>90); GLUCOSE,RANDOM 114.0 mg/dL (70-105); SODIUM SERUM 142.0 mmol/L (136-145); UREA NITROGEN, BLOOD 12.0 mg/dL (7-18)
[2025-08-13 19:32] LABS: ASPARTATE AMINOTRANSFERASE 16.0 U/L (10-37); TOTAL PROTEIN, SERUM 6.6 g/dL (6.0-8.3)
[2025-08-13] MEDS: 0.9%NACL 1000ML 1,000 ML IV ONE (19:50)
[2025-08-13] MEDS: VANCOMYCIN KIT 1 GM/250 ML IV.KIT IV ONE (19:50)
[2025-08-13 20:31] LABS: SARS-CoV-2, RNA, NAAT NEGATIVE SARS CoV-2 (NEGATIVE)
[2025-08-13 20:32] LABS: INFLUENZA TYPE A Negative For Type A (NEGATIVE); INFLUENZA TYPE B Negative For Type B (NEGATIVE)
--- NOTE | 2025-08-13 20:45 | HMCIMG ---
EXAM: CR Chest, 1 View. CLINICAL HISTORY: fever, post op fever COMPARISON: None provided. FINDINGS: LUNGS: There is no mass, infiltrate, or acute pulmonary abnormality. PLEURAL SPACES: No evidence of pleural effusion or pneumothorax. MEDIASTINUM: The cardiomediastinal silhouette is within normal limits. BONES: No aggressive appearing osseous lesion seen. IMPRESSION: No acute cardiopulmonary pathology is evident. /[place]
--- NOTE | 2025-08-13 20:48 | HMCIMG ---
EXAM: Ultrasound Breast, Limited (Right) CLINICAL HISTORY: History of bilateral mastectomy on July 27, 2025. Evaluate for soft tissue fluid collection or abscess. TECHNIQUE: Targeted ultrasound examination of the right chest wall was performed to evaluate for fluid collection or abscess formation. COMPARISON: Compared to prior ultrasound dated June 04, 2013. FINDINGS: There is a large fluid collection surrounding the right breast die out worker, measuring approximately 12.2 x 7.7 x 12.9 cm. IMPRESSION: Large fluid collection around the right breast die out worker measuring 12.2 x 7.7 x 12.9 cm ??? concerning for seroma or abscess. /[place]
[2025-08-13] MEDS: LIDOCAINE 1%-EPI 1:100,000 20 ML VIAL IJ ONE (21:00)
[2025-08-13 23:36] VITALS: BP 112/60; PULSE 84; RESP 18; TEMP 98.6; O2SAT 98
== END 2025-08-13 23:39 | disposition home or self-care (01) ==
LOC: EDH 18:16
DX: N61.1 Abscess of the breast and nipple (principal); E11.9 Type 2 diabetes mellitus without complications; E78.00 Pure hypercholesterolemia, unspecified; F41.9 Anxiety disorder, unspecified; I10 Essential (primary) hypertension; E66.01 Morbid (severe) obesity due to excess calories; Z79.52 Long term (current) use of systemic steroids; Z79.899 Other long term (current) drug therapy; Z85.3 Personal history of malignant neoplasm of breast; Z90.13 Acquired absence of bilateral breasts and nipples; Z90.49 Acquired absence of other specified parts of digestive tract; Z20.822 Contact with and (suspected) exposure to COVID-19
CPT/HCPCS: 99284; 96365; 96366; 71045; 87635; 80076; 80048; 85025; 87040 ×2; 87070 ×2; 87076 ×2; 87086 ×3; 87186 ×3; 87804 ×2; 83605 ×2; 81001; 36415; 76642; 96368; 84145; J3490; J3373; J0692